=== PATIENT | female | born 1940 | race Caucasian/White ===

== ENCOUNTER 2016-11-07 05:28 | Emergency (ER) | payer OTHER ==
[~2016-11-07 05:28] MED LIST: ACETAMINOPHEN500 MG PO; ALLOPURINOL100 MG PO; ASPIRIN325 MG PO; ATORVASTATIN CA20 MG PO; BUPROPION HCL100 MG PO; CARVEDILOL25 MG PO; CITALOPRAM HYDR20 MG PO; COLCRYS0.6 MG; COUMADIN6 MG PO; COZAAR100 MG PO; FLUTICASONE PR50 MCG; LEVOTHYROXINE75 MCG PO; PERCOCET1 TA4 PO; PRILOSEC20 MG PO; SPIRIVA18 MCG INH; TRAMADOL HCL50 MG PO
--- NOTE | 2016-11-07 06:04 | ED ORDER SUMMARY ---
..... Patient: MALU BAUER OrderSheet [facility] VisitID: [id number] [address] [place] [address] 76y, F Registration Date/Time: 11/07/2016 ORDER SHEET Weight: 37.1 kg (stated) Allergies: LIsinopril, Penicillins, Sulfa Antibiotics GENERAL ORDERS: CBC w Diff Urgent (05:54 11/07/2016 [facility] ZARATE) (5:55 [facility] R[facility] Specialist) PT with INR Urgent (05:54 11/07/2016 [facility] ZARATE) (5:55 [facility]) MEDICATION ORDERS: IV FLUIDS: ORDER SHEET NOTES: [Electronically signed by Kevyn Gutierrez R.N. (06:15 11/07/2016)] [Electronically signed by Antione Almanzar DO (06:27 11/07/2016)] [Electronically locked/signed by Kevyn Gutierrez R.N. (06:15 11/07/2016)]
--- NOTE | 2016-11-07 06:04 | ED NURSING NOTES ---
Clinical Report - Nurses [facility] [address] [place] [address] 11/07/2016 5:28 Patient: MALU BAUER TRIAGE Triage time 05:36. Acuity: LEVEL 3. Chief Complaint: REDNESS TO RIGHT EYE. BLEEDING TO RIGHT EYE. 05:50. Alert. SEPSIS SCREEN: Sepsis Screen. Negative (no infection suspected/documented). VISUAL ACUITY: Visual acuity performed without corrective lenses: left eye 20/15; right eye 20/40 minus one letter; both eyes 20/20. --05:50 Kevyn Gutierrez R.N. 05:36 11/07/16. BP: 153/76. HR: 64. RR: 17. O2 saturation: 100% on room air. Temp: 97.7 F (oral). Pain level now: 0/10. --05:50 Kevyn Gutierrez R.N. Weight: 37.1 kg stated. Height/Length: 65 inches Per Patient. BMI: 13.6. --05:42 Kevyn Gutiererz R.N. Medications Cephalexin Oral 250 mg, daily. --05:44 Kevyn Gutierrez R.N. Levothyroxine Sodium Oral 75 mcg, daily. --05:44 Kevyn Gutierrez R.N. Fluticasone Furoate Nasal (Suspension 27.5 mcg/spray) 2 sprays each side , daily. --05:44 Kevyn Gutierrez R.N. Tamsulosin HCl Oral 0.4 mg, daily. --05:45 Kevyn Gutierrez R.N. Warfarin Sodium Oral 5 mg, daily. --05:46 Kevyn Gutierrez R.N. Furosemide Oral 20 mg, daily. --05:46 Kevyn Gutierrez R.N. Spironolactone Oral 25 mg, daily. --05:46 Kevyn Gutierrez R.N. BuPROPion HCl Oral 100 mg, 2x a day. --05:46 Kevyn Gutierrez R.N. Carvedilol Oral (Tablet 25 mg) 1 tablet, 2 x daily. --05:47 Kevyn Gutierrez R.N. Citalopram Hydrobromide Oral (Tablet 20 mg) 1 tablet, daily. --05:47 Kevyn Gutierrez R.N. Allergies LIsinopril. Penicillins. Sulfa Antibiotics. --05:40 Kevyn Gutierrez R.N. Medication/allergy information source: the patient. --05:50 Kevyn Gutierrez R.N. History Arrived by private vehicle. Historian: patient. Unaccompanied. Primary physician (Shital). Onset. (Woke up this AM with blood all over). She did not sustain an injury. ( Patient reports getting back from [place] yesterday, was very upset with her son and cried a lot last night, this morning about 0430 she woke up bloody with a blot clot in her right eye with blood on her pajamas and bedding). PAST MEDICAL HX: Immunizations: up-to-date. The patient has had a hysterectomy. SOCIAL HX: Never smoker. No alcohol use or drug use. No infectious disease exposure. ABUSE ASSESSMENT: No report of abuse. FALL RISK ASSESSMENT: Fall risk assessment completed. No fall risk identified. NUTRITIONAL RISK ASSESSMENT: The nutritional risk assessment revealed no deficiencies. FUNCTIONAL ASSESSMENT: Functional assessment: no impairments noted. LEARNING NEEDS ASSESSMENT: The learning needs assessment revealed no barriers. SKIN INTEGRITY ASSESSMENT: Skin integrity risk assessment completed. No skin integrity risk identified. --05:50 Kevyn Gutierrez R.N. PROBLEMS: Coronary Artery Disease. UTI. Dizziness. Heart Disease. Valvular Heart Disease. Pacemaker. Depression. Hypercholesterolemia. Hypertension. Atrial Fibrillation. --05:42 Kevyn Gutierrez R.N. Hypothyroidism. --05:50 Kevyn Gutierrez R.N. ADDITIONAL SURGERIES: Aortic valve replacement. Bladder Suspension. Bowel Surgery. Pacemaker. --05:42 Kevyn Gutierrez R.N. Back Surgery. Cholecystectomy. Eye surgery . Foot surgery x 4 . Hysterectomy. Shoulder Surgery. --05:50 Kevyn Gutierrez R.N. Interventions ID band on patient. To treatment room. --05:50 Kevyn Gutierrez R.N. PHYSICAL ASSESSMENT 05:51. Ambulatory to room. Patient gowned. GENERAL / NEURO / PSYCH: Alert. HEENT: No facial asymmetry noted. ( bleeding from right lower eye lid). RESPIRATORY: Respirations not labored. SKIN: Skin is warm and dry. Normal skin turgor. --05:51 Kevyn Gutierrez R.N. NURSING PROGRESS NOTES 05:45. Patient ID band checked for patient name and birthdate: patient confirmed. Blood samples drawn from the right antecubital space with Vacutainer by [employer] ; labeled in presence of the patient and sent to lab: bubba chaudhary. (by [facility] tech). --05:52 Kevyn Gutierrez R.N. 05:52. Head of bed elevated. Two patient identifiers checked. Call light placed in reach. Bed placed in lowest position. Brakes of bed on. Patient ready for evaluation- chart flagged. --05:52 Kevyn Gutierrez R.N. 06:12. The patient is calm and resting quietly. Overall patient status is improved- she states feels better. GENERAL / NEURO / PSYCH: Alert. Oriented X 4. RESPIRATORY: No respiratory distress. SKIN: Skin color within normal limits. --06:14 Kevyn Gutierrez R.N. DISPOSITION / DISCHARGE Departure time: 06:14. Condition at departure: stable. No learning barriers present. Discharge instructions provided and reviewed with the patient. Patient verbalized understanding. Written instructions provided in Thai. The patient was discharged home and unaccompanied at time of discharge. She left the Emergency Department ambulatory and via private vehicle. Patient driving. FALL RISK ASSESSMENT: Fall risk assessment completed. No fall risk identified. --06:14 Kevyn Gutierrez R.N. Locked/Released at 11/07/2016 6:15 by Kevyn Gutierrez R.N.
--- NOTE | 2016-11-07 06:04 | ED NURSING NOTES ---
Clinical Report - Nurses [facility] [address] [place] [address] 11/07/2016 5:28 Patient: MALU BAUER TRIAGE Triage time 05:36. Acuity: LEVEL 3. Chief Complaint: REDNESS TO RIGHT EYE. BLEEDING TO RIGHT EYE. 05:50. Alert. SEPSIS SCREEN: Sepsis Screen. Negative (no infection suspected/documented). VISUAL ACUITY: Visual acuity performed without corrective lenses: left eye 20/15; right eye 20/40 minus one letter; both eyes 20/20. --05:50 Kevyn Gutierrez R.N. 05:36 11/07/16. BP: 153/76. HR: 64. RR: 17. O2 saturation: 100% on room air. Temp: 97.7 F (oral). Pain level now: 0/10. --05:50 Kevyn Gutierrez R.N. Weight: 37.1 kg stated. Height/Length: 65 inches Per Patient. BMI: 13.6. --05:42 Kevyn Gutierrez R.N. Medications Cephalexin Oral 250 mg, daily. --05:44 Kevyn Gutierrez R.N. Levothyroxine Sodium Oral 75 mcg, daily. --05:44 Kevyn Gutierrez R.N. Fluticasone Furoate Nasal (Suspension 27.5 mcg/spray) 2 sprays each side , daily. --05:44 Kevyn Gutierrez R.N. Tamsulosin HCl Oral 0.4 mg, daily. --05:45 Kevyn Gutierrez R.N. Warfarin Sodium Oral 5 mg, daily. --05:46 Kevyn Gutierrez R.N. Furosemide Oral 20 mg, daily. --05:46 Kevyn Gutierrez R.N. Spironolactone Oral 25 mg, daily. --05:46 Kevyn Gutierrez R.N. BuPROPion HCl Oral 100 mg, 2x a day. --05:46 Kevyn Gutierrez R.N. Carvedilol Oral (Tablet 25 mg) 1 tablet, 2 x daily. --05:47 Kevyn Gutierrez R.N. Citalopram Hydrobromide Oral (Tablet 20 mg) 1 tablet, daily. --05:47 Kevyn Gutierrez R.N. Allergies LIsinopril. Penicillins. Sulfa Antibiotics. --05:40 Kevyn Gutierrez R.N. Medication/allergy information source: the patient. --05:50 Kevyn Gutierrez R.N. History Arrived by private vehicle. Historian: patient. Unaccompanied. Primary physician (Shital). Onset. (Woke up this AM with blood all over). She did not sustain an injury. ( Patient reports getting back from [place] yesterday, was very upset with her son and cried a lot last night, this morning about 0430 she woke up bloody with a blot clot in her right eye with blood on her pajamas and bedding). PAST MEDICAL HX: Immunizations: up-to-date. The patient has had a hysterectomy. SOCIAL HX: Never smoker. No alcohol use or drug use. No infectious disease exposure. ABUSE ASSESSMENT: No report of abuse. FALL RISK ASSESSMENT: Fall risk assessment completed. No fall risk identified. NUTRITIONAL RISK ASSESSMENT: The nutritional risk assessment revealed no deficiencies. FUNCTIONAL ASSESSMENT: Functional assessment: no impairments noted. LEARNING NEEDS ASSESSMENT: The learning needs assessment revealed no barriers. SKIN INTEGRITY ASSESSMENT: Skin integrity risk assessment completed. No skin integrity risk identified. --05:50 Kevyn Gutierrez R.N. PROBLEMS: Coronary Artery Disease. UTI. Dizziness. Heart Disease. Valvular Heart Disease. Pacemaker. Depression. Hypercholesterolemia. Hypertension. Atrial Fibrillation. --05:42 Kevyn Gutierrez R.N. Hypothyroidism. --05:50 Kevyn Gutierrez R.N. ADDITIONAL SURGERIES: Aortic valve replacement. Bladder Suspension. Bowel Surgery. Pacemaker. --05:42 Kevyn Gutierrez R.N. Back Surgery. Cholecystectomy. Eye surgery . Foot surgery x 4 . Hysterectomy. Shoulder Surgery. --05:50 Kevyn Gutierrez R.N. Interventions ID band on patient. To treatment room. --05:50 Kevyn Gutierrez R.N. PHYSICAL ASSESSMENT 05:51. Ambulatory to room. Patient gowned. GENERAL / NEURO / PSYCH: Alert. HEENT: No facial asymmetry noted. ( bleeding from right lower eye lid). RESPIRATORY: Respirations not labored. SKIN: Skin is warm and dry. Normal skin turgor. --05:51 Kevyn Gutierrez R.N. NURSING PROGRESS NOTES 05:45. Patient ID band checked for patient name and birthdate: patient confirmed. Blood samples drawn from the right antecubital space with Vacutainer by [employer] ; labeled in presence of the patient and sent to lab: bubba chaudhary. (by [employer] [facility] tech). --05:52 Kevyn Gutierrez R.N. 05:52. Head of bed elevated. Two patient identifiers checked. Call light placed in reach. Bed placed in lowest position. Brakes of bed on. Patient ready for evaluation- chart flagged. --05:52 Kevyn Gutierrez R.N. 06:12. The patient is calm and resting quietly. Overall patient status is improved- she states feels better. GENERAL / NEURO / PSYCH: Alert. Oriented X 4. RESPIRATORY: No respiratory distress. SKIN: Skin color within normal limits. --06:14 Kevyn Gutierrez R.N. DISPOSITION / DISCHARGE Departure time: 06:14. Condition at departure: stable. No learning barriers present. Discharge instructions provided and reviewed with the patient. Patient verbalized understanding. Written instructions provided in Turkmen. The patient was discharged home and unaccompanied at time of discharge. She left the Emergency Department ambulatory and via private vehicle. Patient driving. FALL RISK ASSESSMENT: Fall risk assessment completed. No fall risk identified. --06:14 Kevyn Gutierrez R.N. Locked/Released at 11/07/2016 6:15 by Kevyn Gutierrez R.N.
--- NOTE | 2016-11-07 06:04 | ED ORDER SUMMARY ---
..... Patient: MALU BAUER OrderSheet [facility] VisitID: [id number] [address] [place] [address] 76y, F Registration Date/Time: 11/07/2016 ORDER SHEET Weight: 37.1 kg (stated) Allergies: LIsinopril, Penicillins, Sulfa Antibiotics GENERAL ORDERS: CBC w Diff Urgent (05:54 [facility] (5:55 [facility] A P Manager) PT with INR Urgent (05:54 [facility]/07/2016 [facility] (5:55 [facility] A P Manager) MEDICATION ORDERS: IV FLUIDS: ORDER SHEET NOTES: [Electronically signed by Kevyn Gutierrez R.N. (06:15 11/07/2016)] [Electronically signed by Antione Almanzar DO (06:27 11/07/2016)] [Electronically locked/signed by Kevyn Gutierrez R.N. (06:15 11/07/2016)]
--- NOTE | 2016-11-07 06:04 | ED CLINICAL REPORT ---
Clinical Report - Physicians/Mid Levels [facility] [address] [place] [address] 11/07/2016 5:28 Patient: MALU BAUER Time Seen: 05:50. Arrived- By private vehicle. Historian- patient. HISTORY OF PRESENT ILLNESS Chief Complaint: EYE IRRITATION and blood from right eye. This started today, involves the right eye, is characterized as moderate in severity and has been constant and is still present. The patient did not sustain an injury. No eye pain. ( Patient reports getting back from [place] yesterday, was very upset with her son and cried a lot last night, this morning about 0430 she woke up bloody with a blot clot in her right eye with blood on her pajamas and bedding). REVIEW OF SYSTEMS No fever, sore throat or cough. All systems otherwise negative, except as recorded above. PAST HISTORY Glaucoma. PCP: Dr Isaacs PROBLEMS: Coronary Artery Disease. UTI. Dizziness. Heart Disease. Valvular Heart Disease. Pacemaker. Depression. Hypercholesterolemia. Hypertension. Atrial Fibrillation. Hypothyroidism. SURGERIES: Aortic valve replacement. Bladder Suspension. Bowel Surgery. Pacemaker. Back Surgery. Cholecystectomy. Eye surgery . Foot surgery x 4 . Hysterectomy. Shoulder Surgery. SOCIAL HISTORY Never smoker. No alcohol use or drug use. ADDITIONAL NOTES The nursing notes have been reviewed. PHYSICAL EXAM Vital Signs: 11/07/2016 05:36 BP: 153/76. HR: 64. RR: 17. O2 saturation: 100%. Temp: 97.7 F. Pain level now: 0/10. Appearance: Alert. Oriented X3. Anxious. No mild distress. Rt Eye: Moderate conjunctival edema (with left palpebral conjuctival inflammation and small amount of bleeding). No hyphema or injury to the periorbital area, eyebrow area, conjunctiva or sclera. No subconjunctival hemorrhage or conjunctival foreign body. No stye present. No foreign body under the eyelid. Conjunctiva not injected. Eyes: Corneas appear normal to inspection. Pupils equal, round and reactive to light. Accommodation normal. EOMs intact. Periorbital areas appear normal to inspection. Anterior chambers clear. Anterior chambers of normal depth. Lt Eye: Left eye exam normal. No hyphema. Neck: Normal inspection. CVS: Normal heart rate and rhythm. Heart sounds normal. Respiratory: No respiratory distress. Breath sounds normal. Skin: No rash. Extremities: Extremities negative. Neuro: Oriented X 3. Mood/affect normal. LABS, X-RAYS, AND EKG Laboratory Tests: CBC w Diff: (KIRK: 11/07/2016 05:44) ( [facility] 11/07/2016 05:58) Final results Test Result Flag Units (Reference) WHITE BLOOD COUNT 6.9 K/uL (4.5-11.5) RED BLOOD COUNT 4.81 M/uL (4.00-5.20) HEMOGLOBIN 12.0 gm/dL (12.0-16.0) HEMATOCRIT 38.1 % (36.0-46.0) MEAN CELL VOLUME 79 L fL (80-100) MEAN CORPUSCULAR HGB 25 L pg (26-34) MEAN CORPUSCULAR HGB CONC 31 g/dL (31-37) RED CELL DISTRIBUTION WIDTH 19.5 H % (11.6-14.8) PLATELET COUNT 235 K/uL (150-400) NEUTROPHIL % 51.6 % (50-75) LYMPH % 38.0 % (25-40) MONO % 8.1 % (3-14) EOSINOPHIL % 1.9 % (0-4) BASOPHIL % 0.4 % (0-2) PT with INR: (KIRK: 11/07/2016 05:44) ( [facility] 11/07/2016 06:04) Final results Test Result Flag Units (Reference) INR 2.4 H (0.8-1.2) Low Intensity Therapy: INR 1.5-2.0 PT range 18.5-23.1Mod.Intensity Therapy: INR 2.0-3.0 PT range 23.1-31.5High Intensity Therapy: INR 2.5-3.5 PT range 27.4-35.5High Intensity Therapy 2: INR 3.0-4.0 PT range 31.5-39.3 . Pulse Oximetry: 11/07/2016 05:36 O2 saturation: 100%. (FIO2 - room air). Interpretation: normal. PROGRESS AND PROCEDURES Course of Care: Pt with moderate right palpebral conjunctival inflammation with mild bleeding - no active bleeding now. No subconjunctival hemorrhage or hyphema now. No new visual changes. Patient/family counseled. Old ED records reviewed. Disposition: Discharged. Condition: stable and improved. CLINICAL IMPRESSION Acute hemorrhagic conjunctivitis of the right eye. Essential hypertension. Possible right subconjunctival hemorrhage (resolved). Chronic atrial fibrillation Heart valve replacement. INSTRUCTIONS Drink plenty of fluids. Warnings: Further evaluation is necessary in order to obtain test results. It is very important to follow up with a physician. GENERAL WARNINGS: Return or contact your physician immediately if your condition worsens or changes unexpectedly, if not improving as expected, or if other problems arise. Your Current Medications: CONTINUE TAKING THE FOLLOWING MEDICATIONS: BuPROPion HCl Oral : 100 mg 2x a day. Carvedilol Oral : Tablet 25 mg, 1 tablet 2 x daily. Cephalexin Oral : 250 mg daily. Citalopram Hydrobromide Oral : Tablet 20 mg, 1 tablet daily. Fluticasone Furoate Nasal : Suspension 27.5 mcg/spray, 2 sprays each side daily. Furosemide Oral : 20 mg daily. Levothyroxine Sodium Oral : 75 mcg daily. Spironolactone Oral : 25 mg daily. Tamsulosin HCl Oral : 0.4 mg daily. Warfarin Sodium Oral : 5 mg daily. Follow-up: Screening today revealed the patient's blood pressure to be in the hypertensive range. The patient should follow up with a primary care provider for blood pressure management. Follow-up with: Malini Alvarado MD, Ophthalmology, [facility], [address] [place] [address] - [address] [address]; George Arnold MD, Ophthalmology, , [facility], [address] [place] [address] Follow up today. Follow-up with: Jonathan Isaacs MD, Family [facility], , [facility], [address] [place] [address] Follow up tomorrow. (Electronically signed by Antione Almanzar DO 11/07/2016 6:27)
--- NOTE | 2016-11-07 06:04 | ED CLINICAL REPORT ---
Clinical Report - Physicians/Mid Levels [facility] [address] [place] [address] 11/07/2016 5:28 Patient: MALU BAUER Time Seen: 05:50. Arrived- By private vehicle. Historian- patient. HISTORY OF PRESENT ILLNESS Chief Complaint: EYE IRRITATION and blood from right eye. This started today, involves the right eye, is characterized as moderate in severity and has been constant and is still present. The patient did not sustain an injury. No eye pain. ( Patient reports getting back from [place] yesterday, was very upset with her son and cried a lot last night, this morning about 0430 she woke up bloody with a blot clot in her right eye with blood on her pajamas and bedding). REVIEW OF SYSTEMS No fever, sore throat or cough. All systems otherwise negative, except as recorded above. PAST HISTORY Glaucoma. PCP: Dr Isaacs PROBLEMS: Coronary Artery Disease. UTI. Dizziness. Heart Disease. Valvular Heart Disease. Pacemaker. Depression. Hypercholesterolemia. Hypertension. Atrial Fibrillation. Hypothyroidism. SURGERIES: Aortic valve replacement. Bladder Suspension. Bowel Surgery. Pacemaker. Back Surgery. Cholecystectomy. Eye surgery . Foot surgery x 4 . Hysterectomy. Shoulder Surgery. SOCIAL HISTORY Never smoker. No alcohol use or drug use. ADDITIONAL NOTES The nursing notes have been reviewed. PHYSICAL EXAM Vital Signs: 11/07/2016 05:36 BP: 153/76. HR: 64. RR: 17. O2 saturation: 100%. Temp: 97.7 F. Pain level now: 0/10. Appearance: Alert. Oriented X3. Anxious. No mild distress. Rt Eye: Moderate conjunctival edema (with left palpebral conjuctival inflammation and small amount of bleeding). No hyphema or injury to the periorbital area, eyebrow area, conjunctiva or sclera. No subconjunctival hemorrhage or conjunctival foreign body. No stye present. No foreign body under the eyelid. Conjunctiva not injected. Eyes: Corneas appear normal to inspection. Pupils equal, round and reactive to light. Accommodation normal. EOMs intact. Periorbital areas appear normal to inspection. Anterior chambers clear. Anterior chambers of normal depth. Lt Eye: Left eye exam normal. No hyphema. Neck: Normal inspection. CVS: Normal heart rate and rhythm. Heart sounds normal. Respiratory: No respiratory distress. Breath sounds normal. Skin: No rash. Extremities: Extremities negative. Neuro: Oriented X 3. Mood/affect normal. LABS, X-RAYS, AND EKG Laboratory Tests: CBC w Diff: (KIRK: 11/07/2016 05:44) ( [facility] 11/07/2016 05:58) Final results Test Result Flag Units (Reference) WHITE BLOOD COUNT 6.9 K/uL (4.5-11.5) RED BLOOD COUNT 4.81 M/uL (4.00-5.20) HEMOGLOBIN 12.0 gm/dL (12.0-16.0) HEMATOCRIT 38.1 % (36.0-46.0) MEAN CELL VOLUME 79 L fL (80-100) MEAN CORPUSCULAR HGB 25 L pg (26-34) MEAN CORPUSCULAR HGB CONC 31 g/dL (31-37) RED CELL DISTRIBUTION WIDTH 19.5 H % (11.6-14.8) PLATELET COUNT 235 K/uL (150-400) NEUTROPHIL % 51.6 % (50-75) LYMPH % 38.0 % (25-40) MONO % 8.1 % (3-14) EOSINOPHIL % 1.9 % (0-4) BASOPHIL % 0.4 % (0-2) PT with INR: (KIRK: 11/07/2016 05:44) ( [facility] 11/07[facility] 06:04) Final results Test Result Flag Units (Reference) INR 2.4 H (0.8-1.2) Low Intensity Therapy: INR 1.5-2.0 PT range 18.5-23.1Mod.Intensity Therapy: INR 2.0-3.0 PT range 23.1-31.5High Intensity Therapy: INR 2.5-3.5 PT range 27.4-35.5High Intensity Therapy 2: INR 3.0-4.0 PT range 31.5-39.3 . Pulse Oximetry: 11/07/2016 05:36 O2 saturation: 100%. (FIO2 - room air). Interpretation: normal. PROGRESS AND PROCEDURES Course of Care: Pt with moderate right palpebral conjunctival inflammation with mild bleeding - no active bleeding now. No subconjunctival hemorrhage or hyphema now. No new visual changes. Patient/family counseled. Old ED records reviewed. Disposition: Discharged. Condition: stable and improved. CLINICAL IMPRESSION Acute hemorrhagic conjunctivitis of the right eye. Essential hypertension. Possible right subconjunctival hemorrhage (resolved). Chronic atrial fibrillation Heart valve replacement. INSTRUCTIONS Drink plenty of fluids. Warnings: Further evaluation is necessary in order to obtain test results. It is very important to follow up with a physician. GENERAL WARNINGS: Return or contact your physician immediately if your condition worsens or changes unexpectedly, if not improving as expected, or if other problems arise. Your Current Medications: CONTINUE TAKING THE FOLLOWING MEDICATIONS: BuPROPion HCl Oral : 100 mg 2x a day. Carvedilol Oral : Tablet 25 mg, 1 tablet 2 x daily. Cephalexin Oral : 250 mg daily. Citalopram Hydrobromide Oral : Tablet 20 mg, 1 tablet daily. Fluticasone Furoate Nasal : Suspension 27.5 mcg/spray, 2 sprays each side daily. Furosemide Oral : 20 mg daily. Levothyroxine Sodium Oral : 75 mcg daily. Spironolactone Oral : 25 mg daily. Tamsulosin HCl Oral : 0.4 mg daily. Warfarin Sodium Oral : 5 mg daily. Follow-up: Screening today revealed the patient's blood pressure to be in the hypertensive range. The patient should follow up with a primary care provider for blood pressure management. Follow-up with: Malini Alvarado MD, Ophthalmology, [facility], [address] [place] [address] - [address] [address]; George Arnold MD, Ophthalmology, , [facility], [address] [place] [address] Follow up today. Follow-up with: Jonathan Isaacs MD, Family [facility], , [facility], [address] [place] [address] Follow up tomorrow. (Electronically signed by Antione Almanzar DO 11/07/2016 6:27)
--- NOTE | 2016-11-07 06:27 | ED MED RECONCILIATION SUMMARY ---
Patient: MALU BAUER Medication Reconciliation Report [facility] VisitID: [id number] [address] [place] [address] 76y, F Registration Date/Time: 11/07/2016 Weight: 37.1 kg Height/Length: 65 in. BMI: 13.6 ALLERGIES: LIsinopril, Penicillins, Sulfa Antibiotics The patient's Home Medications are listed below: CONTINUE TAKING THE FOLLOWING MEDICATIONS: BuPROPion HCl Oral 100 mg, 2x a day Carvedilol Oral (25 mg) 1 tablet, 2 x daily Cephalexin Oral 250 mg, daily Citalopram Hydrobromide Oral (20 mg) 1 tablet, daily Fluticasone Furoate Nasal (27.5 mcg/spray) 2 sprays each side , daily Furosemide Oral 20 mg, daily Levothyroxine Sodium Oral 75 mcg, daily Spironolactone Oral 25 mg, daily Tamsulosin HCl Oral 0.4 mg, daily Warfarin Sodium Oral 5 mg, daily The source(s) of the original Home Medication information: patient The following Medications were given to the patient in the Emergency Department: None. The following Medications were prescribed to the patient: None.
--- NOTE | 2016-11-07 06:27 | ED DISCHARGE INSTRUCTIONS ---
Patient: MALU BAUER General Instructions [facility] VisitID: [id number] [place] [address] 76y, F Registration Date/Time: 11/07/2016 Acute hemorrhagic conjunctivitis of the right eye. Essential hypertension. Chronic atrial fibrillation Heart valve replacement. INSTRUCTIONS Drink plenty of fluids. Warnings: Further evaluation is necessary in order to obtain test results. It is very important to follow up with a physician. GENERAL WARNINGS: Return or contact your physician immediately if your condition worsens or changes unexpectedly, if not improving as expected, or if other problems arise. Your Current Medications: CONTINUE TAKING THE FOLLOWING MEDICATIONS: BuPROPion HCl Oral : 100 mg 2x a day. Carvedilol Oral : Tablet 25 mg, 1 tablet 2 x daily. Cephalexin Oral : 250 mg daily. Citalopram Hydrobromide Oral : Tablet 20 mg, 1 tablet daily. Fluticasone Furoate Nasal : Suspension 27.5 mcg/spray, 2 sprays each side daily. Furosemide Oral : 20 mg daily. Levothyroxine Sodium Oral : 75 mcg daily. Spironolactone Oral : 25 mg daily. Tamsulosin HCl Oral : 0.4 mg daily. Warfarin Sodium Oral : 5 mg daily. Follow-up: Screening today revealed the patient's blood pressure to be in the hypertensive range. The patient should follow up with a primary care provider for blood pressure management. Follow-up with: Malini Alvarado MD, Ophthalmology, [facility], [address] [place] [address] [place] [address]; George Arnold MD, Ophthalmology, , [facility], [address] [place] [address] Follow up today. Follow-up with: Jonathan Isaacs MD, [facility], , [facility], [address] [place] [address] Follow up tomorrow. ADDITIONAL INFORMATION Conjunctivitis, Non-Specific The membrane that covers your eye is inflamed. Any itching, burning or irritation should go away within the next 24 hours. Conjunctivitis may be related to a particle that was in your eye. If so, it was washed out with your tears or irrigation treatment. Being exposed to liquid chemicals or fumes may also cause this reaction. Your condition does not appear to be due to an eye infection. Home Care: Apply a cold pack (ice in a plastic bag, wrapped in a towel) over the eye for 20 minutes at a time. This will reduce pain. Eye drops may be prescribed to reduce irritation or redness. Otherwise, Visine or similar pqnk-ttg-[id number] decongestant eye drops may be used. You may use acetaminophen (Tylenol) or ibuprofen (Motrin, Advil) to control pain, unless another medicine was prescribed. [ NOTE: If you have chronic liver or kidney disease or ever had a stomach ulcer or GI bleeding, talk with your doctor before using these medicines.] Follow Up with your doctor or this facility as directed, or if your symptoms have not improved after 24 hours. Get Prompt Medical Attention if any of the following occur: Increased eyelid swelling Increase in eye pain Increased redness or drainage from the eye Failure of normal vision to return within 24-48 hours. Subconjunctival Hemorrhage A subconjunctival hemorrhage is a result of a broken blood vessel in the white portion of the eye. It is usually painless and may be caused by coughing, sneezing or vomiting. An injury to the eye can cause this. It can also be a sign of hypertension (high blood pressure) or a bleeding disorder. Although it can look frightening, the presence of the blood is not serious. The blood will be reabsorbed without treatment within 2-3 weeks. Home Care: You may continue your usual activities. Get Prompt Medical Attention if any of the following occur: Pain in the eye Change in vision The blood does not disappear within three weeks Increasing redness or swelling of the eye Severe headache or dizziness Other signs of bruising or bleeding from other parts of your body High Blood Pressure --Established High Blood Pressure (Hypertension) is a chronic disease. The cause is unknown in most cases. It can usually be controlled with lifestyle changes and/or medicines. Symptoms of high blood pressure may include headache, dizziness, visual changes, chest pain and shortness of breath. Sometimes it causes no symptoms at all. However, even if there are no symptoms, untreated high blood pressure increases the risk of heart attack, also known as acute myocardial infarction, or AMI, and stroke. It is a serious health risk and should not be ignored. A normal blood pressure is 120/80 or less. The first (top) number is the "systolic" pressure. The second (bottom) number is the "diastolic" pressure. Hypertension exists when either the top number is 140 or higher, OR the bottom number is 90 or higher on repeated measurements. Home Care: All patients with high blood pressure should do the following to lower their pressure. If you are on medicines, then these methods may reduce or eliminate your need for medicines in the future. Begin a weight loss program if you are overweight. Reduce your salt intake. Avoid high salt foods (olives, pickles, smoked meats, salted potato chips, etc.). Do not add salt to your food at the table. Use only small amounts of salt when cooking. Begin an exercise program. Discuss with your doctor what type of exercise program would be best for you. It doesn't have to be difficult. Even brisk walking for 20 minutes three times a week is a good form of exercise. Avoid medicines which contain heart stimulants. This includes many cold and sinus decongestant pills and sprays as well as diet pills. Check the warnings about hypertension on the label. Stimulants such as amphetamine or cocaine could be lethal for someone with hypertension. Never take these. Limit your caffeine intake or switch to caffeine-free products. Stop smoking. If you are a long-time smoker, this can be hard. Enroll in a stop-smoking program to improve your chance of success. Learning how to handle stress better is an important part of any program to lower blood pressure. Learn about relaxation methods such as meditation, yoga or biofeedback. If medicines were prescribed, take them exactly as directed. Missing doses may cause your blood pressure get out of control. Consider buying an automatic blood pressure machine (available at most pharmacies). Use this to monitor your blood pressure at home and report the results to your doctor. Follow Up: Regular visits to your own physician for blood pressure checks and medicine adjustment is an important part of your care. Make a follow-up appointment as directed by our staff. Get Prompt Medical Attention if any of the following occur: Chest pain or shortness of breath Severe headache Throbbing or rushing sound in the ears Nosebleed Sudden severe abdominal pain Extreme drowsiness, confusion or fainting Dizziness or vertigo (dizziness with spinning sensation) Weakness of an arm or leg or one side of the face Difficulty with speech or vision You have been given the following additional information: Conjunctivitis, Non-Specific Subconjunctival Hemorrhage Hypertension, Established (Electronically signed by Antione Almanzar DO 11/07/2016 6:27)
--- NOTE | 2016-11-07 06:27 | ED MAR SUMMARY ---
..... Medication Administration Record [facility] [address] [place], [place] [id number] Patient: MALU BAUER Visit ID: [id number] 76y, F Weight: 37.1 kg Height/Length: 65 in BMI: 13.6 ALLERGIES: Penicillins, Sulfa Antibiotics, LIsinopril
--- NOTE | 2016-11-07 06:27 | ED MAR SUMMARY ---
..... Medication Administration Record [facility] [address] [place], [place] [id number] Patient: MALU BAUER Visit ID: [id number] 76y, F Weight: 37.1 kg Height/Length: 65 in BMI: 13.6 ALLERGIES: Penicillins, Sulfa Antibiotics, LIsinopril
--- NOTE | 2016-11-07 06:27 | ED DISCHARGE INSTRUCTIONS ---
Patient: MALU BAUER General Instructions [facility] VisitID: [id number] [place] [address] 76y, F Registration Date/Time: 11/07/2016 Acute hemorrhagic conjunctivitis of the right eye. Essential hypertension. Chronic atrial fibrillation Heart valve replacement. INSTRUCTIONS Drink plenty of fluids. Warnings: Further evaluation is necessary in order to obtain test results. It is very important to follow up with a physician. GENERAL WARNINGS: Return or contact your physician immediately if your condition worsens or changes unexpectedly, if not improving as expected, or if other problems arise. Your Current Medications: CONTINUE TAKING THE FOLLOWING MEDICATIONS: BuPROPion HCl Oral : 100 mg 2x a day. Carvedilol Oral : Tablet 25 mg, 1 tablet 2 x daily. Cephalexin Oral : 250 mg daily. Citalopram Hydrobromide Oral : Tablet 20 mg, 1 tablet daily. Fluticasone Furoate Nasal : Suspension 27.5 mcg/spray, 2 sprays each side daily. Furosemide Oral : 20 mg daily. Levothyroxine Sodium Oral : 75 mcg daily. Spironolactone Oral : 25 mg daily. Tamsulosin HCl Oral : 0.4 mg daily. Warfarin Sodium Oral : 5 mg daily. Follow-up: Screening today revealed the patient's blood pressure to be in the hypertensive range. The patient should follow up with a primary care provider for blood pressure management. Follow-up with: Malini Alvarado MD, Ophthalmology, [facility], [address] [place] [address] [place] [address]; George Arnold MD, Ophthalmology, , [facility], [address] [place] [address] Follow up today. Follow-up with: Jonathan Isaacs MD, Family [facility], , [facility], [address] [place] [address] Follow up tomorrow. ADDITIONAL INFORMATION Conjunctivitis, Non-Specific The membrane that covers your eye is inflamed. Any itching, burning or irritation should go away within the next 24 hours. Conjunctivitis may be related to a particle that was in your eye. If so, it was washed out with your tears or irrigation treatment. Being exposed to liquid chemicals or fumes may also cause this reaction. Your condition does not appear to be due to an eye infection. Home Care: Apply a cold pack (ice in a plastic bag, wrapped in a towel) over the eye for 20 minutes at a time. This will reduce pain. Eye drops may be prescribed to reduce irritation or redness. Otherwise, Visine or similar [id number] decongestant eye drops may be used. You may use acetaminophen (Tylenol) or ibuprofen (Motrin, Advil) to control pain, unless another medicine was prescribed. [ NOTE: If you have chronic liver or kidney disease or ever had a stomach ulcer or GI bleeding, talk with your doctor before using these medicines.] Follow Up with your doctor or this facility as directed, or if your symptoms have not improved after 24 hours. Get Prompt Medical Attention if any of the following occur: Increased eyelid swelling Increase in eye pain Increased redness or drainage from the eye Failure of normal vision to return within 24-48 hours. Subconjunctival Hemorrhage A subconjunctival hemorrhage is a result of a broken blood vessel in the white portion of the eye. It is usually painless and may be caused by coughing, sneezing or vomiting. An injury to the eye can cause this. It can also be a sign of hypertension (high blood pressure) or a bleeding disorder. Although it can look frightening, the presence of the blood is not serious. The blood will be reabsorbed without treatment within 2-3 weeks. Home Care: You may continue your usual activities. Get Prompt Medical Attention if any of the following occur: Pain in the eye Change in vision The blood does not disappear within three weeks Increasing redness or swelling of the eye Severe headache or dizziness Other signs of bruising or bleeding from other parts of your body High Blood Pressure --Established High Blood Pressure (Hypertension) is a chronic disease. The cause is unknown in most cases. It can usually be controlled with lifestyle changes and/or medicines. Symptoms of high blood pressure may include headache, dizziness, visual changes, chest pain and shortness of breath. Sometimes it causes no symptoms at all. However, even if there are no symptoms, untreated high blood pressure increases the risk of heart attack, also known as acute myocardial infarction, or AMI, and stroke. It is a serious health risk and should not be ignored. A normal blood pressure is 120/80 or less. The first (top) number is the "systolic" pressure. The second (bottom) number is the "diastolic" pressure. Hypertension exists when either the top number is 140 or higher, OR the bottom number is 90 or higher on repeated measurements. Home Care: All patients with high blood pressure should do the following to lower their pressure. If you are on medicines, then these methods may reduce or eliminate your need for medicines in the future. Begin a weight loss program if you are overweight. Reduce your salt intake. Avoid high salt foods (olives, pickles, smoked meats, salted potato chips, etc.). Do not add salt to your food at the table. Use only small amounts of salt when cooking. Begin an exercise program. Discuss with your doctor what type of exercise program would be best for you. It doesn't have to be difficult. Even brisk walking for 20 minutes three times a week is a good form of exercise. Avoid medicines which contain heart stimulants. This includes many cold and sinus decongestant pills and sprays as well as diet pills. Check the warnings about hypertension on the label. Stimulants such as amphetamine or cocaine could be lethal for someone with hypertension. Never take these. Limit your caffeine intake or switch to caffeine-free products. Stop smoking. If you are a long-time smoker, this can be hard. Enroll in a stop-smoking program to improve your chance of success. Learning how to handle stress better is an important part of any program to lower blood pressure. Learn about relaxation methods such as meditation, yoga or biofeedback. If medicines were prescribed, take them exactly as directed. Missing doses may cause your blood pressure get out of control. Consider buying an automatic blood pressure machine (available at most pharmacies). Use this to monitor your blood pressure at home and report the results to your doctor. Follow Up: Regular visits to your own physician for blood pressure checks and medicine adjustment is an important part of your care. Make a follow-up appointment as directed by our staff. Get Prompt Medical Attention if any of the following occur: Chest pain or shortness of breath Severe headache Throbbing or rushing sound in the ears Nosebleed Sudden severe abdominal pain Extreme drowsiness, confusion or fainting Dizziness or vertigo (dizziness with spinning sensation) Weakness of an arm or leg or one side of the face Difficulty with speech or vision You have been given the following additional information: Conjunctivitis, Non-Specific Subconjunctival Hemorrhage Hypertension, Established (Electronically signed by Antione Almanzar DO 11/07/2016 6:27)
--- NOTE | 2016-11-07 06:27 | ED MED RECONCILIATION SUMMARY ---
Patient: MALU BAUER Medication Reconciliation Report [facility] VisitID: [id number] [address] [place] [address] 76y, F Registration Date/Time: 11/07/2016 Weight: 37.1 kg Height/Length: 65 in. BMI: 13.6 ALLERGIES: LIsinopril, Penicillins, Sulfa Antibiotics The patient's Home Medications are listed below: CONTINUE TAKING THE FOLLOWING MEDICATIONS: BuPROPion HCl Oral 100 mg, 2x a day Carvedilol Oral (25 mg) 1 tablet, 2 x daily Cephalexin Oral 250 mg, daily Citalopram Hydrobromide Oral (20 mg) 1 tablet, daily Fluticasone Furoate Nasal (27.5 mcg/spray) 2 sprays each side , daily Furosemide Oral 20 mg, daily Levothyroxine Sodium Oral 75 mcg, daily Spironolactone Oral 25 mg, daily Tamsulosin HCl Oral 0.4 mg, daily Warfarin Sodium Oral 5 mg, daily The source(s) of the original Home Medication information: patient The following Medications were given to the patient in the Emergency Department: None. The following Medications were prescribed to the patient: None.
[2017-03-16] MEDS ORDERED: TAMSULOSIN HCL0.4 MG PO (16:48)
[2017-03-16] MEDS ORDERED: TIZANIDINE HCL2 MG (16:49)
[2017-03-16] MEDS ORDERED: TRAZODONE HCL50 MG PO (16:49)
[2017-03-16] MEDS ORDERED: ALDACTONE25 MG PO (16:50)
[2017-03-16] MEDS ORDERED: FUROSEMIDE40 MG PO (16:50)
== END 2016-11-07 06:14 | disposition home or self-care (01) ==
LOC: ED SRH 05:28
DX: H11.31 Conjunctival hemorrhage, right eye (principal); I48.2 Chronic atrial fibrillation; I10 Essential (primary) hypertension; Z95.2 Presence of prosthetic heart valve; Z79.01 Long term (current) use of anticoagulants
CPT/HCPCS: 90074; 94060; 95059

== ENCOUNTER 2016-11-25 22:35 | Emergency (ER) | payer OTHER ==
--- NOTE | 2016-11-26 01:31 | ED NURSING NOTES ---
Clinical Report - Nurses [facility] [address] [place] [address] 11/25/2016 22:36 Patient: MALU BAUER TRIAGE Triage time 22:34 Nov 25 2016. Acuity: LEVEL 3. Chief Complaint: CHEST PAIN. Alert. TOBY COMA SCORE: Toby Coma Scale: 15- eyes open spontaneously (4); best verbal response- oriented x 4 (5); best motor response- obeys commands (6). --22:43 Kevyn Glasgow R.N. 22:33 11/25/16. BP: 140/63. HR: 71. RR: 20. O2 saturation: 96%. Temp: 98.3 F. Pain level now: 0/10. --22:43 Kevyn Glasgow R.N. Weight: 85.4 kg. Height/Length: 65 inches. BMI: 31.4. --22:41 Kevyn Glasgow R.N. Medications BuPROPion HCl Oral 100 mg, 2x a day. Carvedilol Oral (Tablet 25 mg) 1 tablet, 2 x daily. Citalopram Hydrobromide Oral (Tablet 20 mg) 1 tablet, daily. Fluticasone Furoate Nasal (Suspension 27.5 mcg/spray) 2 sprays each side , daily. Furosemide Oral 20 mg, daily. Levothyroxine Sodium Oral 75 mcg, daily. Spironolactone Oral 25 mg, daily. Tamsulosin HCl Oral 0.4 mg, daily. Warfarin Sodium Oral 5 mg, daily (This Rx is being held for a few days while her INR comes down.). --22:39 Kevyn Glasgow R.N. Medication/allergy information source: the patient and patient's imported external medical record. --22:43 Kevyn Glasgow R.N. Allergies LIsinopril. Penicillins. Sulfa Antibiotics. --22:39 Kevyn Glasgow R.N. History Arrived by EMS, and (Medic 48). Historian: patient. Unaccompanied. Primary physician (Shital). ( Chest Pain to (L) of Sternum radiating down (L) arm. Pt is a resident at [facility]). This started today. Onset. (about 4 hours ago). The patient has had difficulty breathing and nausea. Treatment DEMURRAGE CLERK: (4 Baby Apirin given by EMS in field). PAST MEDICAL HX: The patient is post-menopausal. SOCIAL HX: Never smoker. No alcohol use or drug use. No infectious disease exposure. ABUSE ASSESSMENT: No report of abuse. FALL RISK ASSESSMENT: Fall risk assessment completed. No fall risk identified. NUTRITIONAL RISK ASSESSMENT: The nutritional risk assessment revealed no deficiencies. FUNCTIONAL ASSESSMENT: Functional assessment: no impairments noted. LEARNING NEEDS ASSESSMENT: The learning needs assessment revealed no barriers. SKIN INTEGRITY ASSESSMENT: Skin integrity risk assessment completed. No skin integrity risk identified. --22:43 Kevyn Glasgow R.N. PROBLEMS: Subconjunctival Hemorrhage. Glaucoma. Hypothyroidism. Coronary Artery Disease. Pelvic Pain. UTI. Dizziness. Weakness. Heart Disease. Syncope. Valvular Heart Disease. Pacemaker. Depression. Atrial Fibrillation. Hypertension. Hypercholesterolemia. --22:40 Kevyn Glasgow R.N. Conjunctivitis [RuleOut]. --22:40 Kevyn Glasgow R.N. ADDITIONAL SURGERIES: Aortic valve replacement. Back Surgery. Bladder Suspension. Bowel Surgery. Cholecystectomy. Eye surgery . Foot surgery x 4 . Hysterectomy. Pacemaker. Shoulder Surgery. --22:40 Kevyn Glasgow R.N. Interventions ID and allergy band on patient. To treatment room. --22:43 Kevyn Glasgow R.N. PHYSICAL ASSESSMENT To room via stretcher. GENERAL / NEURO / PSYCH: Alert. Oriented X 4. HEENT: Mucous membranes are pink. RESPIRATORY: Respirations not labored. CVS: Cardiac rhythm: atrial fibrillation; (with PPM). Abnormal heart sounds: systolic murmur. Pulses within normal limits. Capillary refill less than 2 seconds. GI / : Abdomen soft and nontender. EXTREMITIES: No lower extremity edema. SKIN: Skin is warm and dry. Normal skin turgor. Skin is non-tender. --22:46 Kevyn Glasgow R.N. NURSING PROGRESS NOTES clinical research monitor, pulse oximeter and NIBP monitor placed on patient; clinical research monitor- Lead II and V1; monitor alarms on. Patient gowned. Reassurance given. Patient identifiers checked. Call light placed in reach. Side rails up x 2. Bed placed in lowest position. Brakes of bed on. Patient ready for evaluation- chart flagged and ED physician notified. --22:46 Kevyn Glasgow R.N. EKG time: (2242 PM). EKG was ordered, performed by a tech and shown to the ED physician. --22:50 Jose Beth 23:01 11/25/2016 Site #1 started prior to arrival by EMS via IV in the left forearm with an 18g angiocath, with aseptic technique and good blood return. Saline lock flushed with 10 mL saline. --23:26 Brisa Lopez ( [facility] --23:30 Brisa Lopez 23:30 11/25/16. BP: 112/74. HR: 74. RR: 18. O2 saturation: 98% on nasal cannula at 2 liters/minute. Pain level now: 0/10. --23:30 Brisa Lopez ( Patient has no complaints at this time). --23:30 Brisa Lopez 00:54 11/26/16. BP: 120/89. HR: 97. O2 saturation: 98% on room air. Temp: 97.9 F. --00:55 Beth Garcia The patient is resting quietly. --00:57 Brisa Lopez 00:56 11/26/16. BP: 119/22. HR: 74. RR: 16. O2 saturation: 98%. Pain level now: 0/10. --00:57 Brisa Lopez 23:15 11/25/16. Care transferred and report received (Kevyn Daugherty). --01:47 Brisa Lopez. DISPOSITION / DISCHARGE 01:38 11/26/16. Condition at departure: stable. --01:38 Brisa Lopez 01:35 11/26/16. BP: 117/97. HR: 68. RR: 20. O2 saturation: 96% on room air. Temp: 98.6 F (oral). Pain level now: 0/10. --01:38 Brisa Lopez No learning barriers present. Discharge instructions provided and reviewed with the patient. Reviewed medication(s) side effects, precautions, dosing and course information. Prescription(s) given to the patient. Patient verbalized understanding. Written instructions provided in [place]an. ( Follow up with cardiology in three days. Return for worsening symptoms.). The patient was discharged by the physician. She was discharged home and accompanied by family. She left the Emergency Department ambulatory and via private vehicle. Family member driving. --01:44 Brisa Lopez 01:39 11/26/2016 Site #1 removed upon discharge. Catheter intact. Bandaid applied. --01:44 Brisa Lopez. Locked/Released at 11/26/2016 1:47 by Brisa Lopez,
--- NOTE | 2016-11-26 01:31 | ED ORDER SUMMARY ---
..... Patient: MALU BAUER OrderSheet [facility] VisitID: [id number] [place] [address] 76y, F Registration Date/Time: 11/25/2016 ORDER SHEET Weight: 85.4 kg Allergies: LIsinopril, Penicillins, Sulfa Antibiotics GENERAL ORDERS: Sound Engineer Audio Control (Continuous) (Chest Pain) (23:11/25/2016 Ernestina R.NMilly verbal order read back to Dorina AGUIRRE) (23:09 Ernestina R.N.) Oxygen (2 L/min) (NC) (23:11/25/2016 Ernestina Arriola verbal order read back to Dorina AGUIRRE) (23:09 Ernestina R.N.) Chest 1V Urgent (23:11/25/2016 Dorina AGUIRRE) (Ack 23:11 AMcQuoid ER Tech1) (23:28 MCampbell) Sound Engineer Audio Control (Continuous) (23:11/25/2016 Dorina AGUIRRE) (Ack 23:11 AMcQuoid ER Tech1) (23:24 HSoule) Cardiac Panel Stat (23:11/25/2016 Dorina AGUIRRE) (Ack 23:11 AMcQuoid ER Tech1) (23:29 TLewis R.N.) BNP Urgent (23:11/25/2016 Dorina AGUIRRE) (Ack 23:11 AMcQuoid ER Tech1) (23:29 TLewis R.N.) Oxygen (2 L/min) (NC) (23:11/25/2016 Dornia AGUIRRE) (Ack 23:11 AMcQuoid ER Tech1) (23:24 HSoule) Pulse oximeter (23:11/25/2016 Dorina AGUIRRE) (Ack 23:11 AMcQuoid ER Tech1) (23:24 HSoule) EKG - ER Stat (:11/25/2016 Dorina AGUIRRE) (Ack 23:11 AMcQuoid ER Tech1) (23:13 AMcQuoid ER Tech1) MEDICATION ORDERS: IV FLUIDS: IV Saline Lock (23:11/25/2016 Ernestina Arriola verbal order read back to Dorina AGUIRRE) (23:26 HSoule) IV Saline Lock (23:10 11/25/2016 Dorina AGUIRRE) (Cancelled: Duplicate Order23:26 HSoule) ORDER SHEET NOTES: [Electronically signed by Brisa Lopez (01:47 11/26/2016)] [Electronically signed by Timur Arguelles MD (20:37 11/28/2016)] [Electronically locked/signed by Brisa Lopez (01:47 11/26/2016)]
--- NOTE | 2016-11-26 01:31 | ED NURSING NOTES ---
Clinical Report - Nurses [address] [place] [address] 11/25/2016 22:36 Patient: MALU BAUER TRIAGE Triage time 22:34 Nov 25 2016. Acuity: LEVEL 3. Chief Complaint: CHEST PAIN. Alert. TOBY COMA SCORE: Toby Coma Scale: 15- eyes open spontaneously (4); best verbal response- oriented x 4 (5); best motor response- obeys commands (6). --22:43 Kevyn Glasgow R.N. 22:33 11/25/16. BP: 140/63. HR: 71. RR: 20. O2 saturation: 96%. Temp: 98.3 F. Pain level now: 0/10. --22:43 Kevyn Glasgow R.N. Weight: 85.4 kg. Height/Length: 65 inches. BMI: 31.4. --22:41 Kevyn Glasgow R.N. Medications BuPROPion HCl Oral 100 mg, 2x a day. Carvedilol Oral (Tablet 25 mg) 1 tablet, 2 x daily. Citalopram Hydrobromide Oral (Tablet 20 mg) 1 tablet, daily. Fluticasone Furoate Nasal (Suspension 27.5 mcg/spray) 2 sprays each side , daily. Furosemide Oral 20 mg, daily. Levothyroxine Sodium Oral 75 mcg, daily. Spironolactone Oral 25 mg, daily. Tamsulosin HCl Oral 0.4 mg, daily. Warfarin Sodium Oral 5 mg, daily (This Rx is being held for a few days while her INR comes down.). --22:39 Kevyn Glasgow R.N. Medication/allergy information source: the patient and patient's imported external medical record. --22:43 Kevyn Glasgow R.N. Allergies LIsinopril. Penicillins. Sulfa Antibiotics. --22:39 Kevyn Glasgow R.N. History Arrived by EMS, and (Medic 48). Historian: patient. Unaccompanied. Primary physician ([facility]). ( Chest Pain to (L) of Sternum radiating down (L) arm. Pt is a resident at [facility]). This started today. Onset. (about 4 hours ago). The patient has had difficulty breathing and nausea. 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 PAST MEDICAL HX: The patient is post-menopausal. SOCIAL HX: Never smoker. No alcohol use or drug use. No infectious disease exposure. ABUSE ASSESSMENT: No report of abuse. FALL RISK ASSESSMENT: Fall risk assessment completed. No fall risk identified. NUTRITIONAL RISK ASSESSMENT: The nutritional risk assessment revealed no deficiencies. FUNCTIONAL ASSESSMENT: Functional assessment: no impairments noted. LEARNING NEEDS ASSESSMENT: The learning needs assessment revealed no barriers. SKIN INTEGRITY ASSESSMENT: Skin integrity risk assessment completed. No skin integrity risk identified. --22:43 Kevyn Glasgow R.N. PROBLEMS: Subconjunctival Hemorrhage. Glaucoma. Hypothyroidism. Coronary Artery Disease. Pelvic Pain. UTI. Dizziness. Weakness. Heart Disease. Syncope. Valvular Heart Disease. Pacemaker. Depression. Atrial Fibrillation. Hypertension. Hypercholesterolemia. --22:40 Kevyn Glasgow R.N. Conjunctivitis [RuleOut]. --22:40 Kevyn Glasgow R.N. ADDITIONAL SURGERIES: Aortic valve replacement. Back Surgery. Bladder Suspension. Bowel Surgery. Cholecystectomy. Eye surgery . Foot surgery x 4 . Hysterectomy. Pacemaker. Shoulder Surgery. --22:40 Kevyn Glasgow R.N. Interventions ID and allergy band on patient. To treatment room. --22:43 Kevyn Glasgow R.N. PHYSICAL ASSESSMENT To room via stretcher. GENERAL / NEURO / PSYCH: Alert. Oriented X 4. HEENT: Mucous membranes are pink. RESPIRATORY: Respirations not labored. CVS: Cardiac rhythm: atrial fibrillation; (with PPM). Abnormal heart sounds: systolic murmur. Pulses within normal limits. Capillary refill less than 2 seconds. GI / : Abdomen soft and nontender. EXTREMITIES: No lower extremity edema. SKIN: Skin is warm and dry. Normal skin turgor. Skin is non-tender. --22:46 Kevyn Glasgow R.N. NURSING PROGRESS NOTES pvc monitor, pulse oximeter and NIBP monitor placed on patient; ekg monitor- Lead II and V1; monitor alarms on. Patient gowned. Reassurance given. Patient identifiers checked. Call light placed in reach. Side rails up x 2. Bed placed in lowest position. Brakes of bed on. Patient ready for evaluation- chart flagged and ED physician notified. --22:46 Kevyn Glasgow R.N. EKG time: (2242 PM). EKG was ordered, performed by a tech and shown to the ED physician. --22:50 Jose Beth 23:01 11/25/2016 Site #1 started prior to arrival by EMS via IV in the left forearm with an 18g angiocath, with aseptic technique and good blood return. Saline lock flushed with 10 mL saline. --23:26 Brisa Lopez ( [facility] --23:30 Brisa Lopez 23:30 11/25/16. BP: 112/74. HR: 74. RR: 18. O2 saturation: 98% on nasal cannula at 2 liters/minute. Pain level now: 0/10. --23:30 Brisa Lopez ( Patient has no complaints at this time). --23:30 Brisa Lopez 00:54 11/26/16. BP: 120/89. HR: 97. O2 saturation: 98% on room air. Temp: 97.9 F. --00:55 Beth Garcia The patient is resting quietly. --00:57 Brisa Lopez 00:56 11/26/16. BP: 119/22. HR: 74. RR: 16. O2 saturation: 98%. Pain level now: 0/10. --00:57 Brisa Lopez 23:15 11/25/16. Care transferred and report received (Kevyn Daugherty). --01:47 Brisa Lopez. DISPOSITION / DISCHARGE 01:38 11/26/16. Condition at departure: stable. --01:38 Brisa Lopez 01:35 11/26/16. BP: 117/97. HR: 68. RR: 20. O2 saturation: 96% on room air. Temp: 98.6 F (oral). Pain level now: 0/10. --01:38 Brisa Lopez No learning barriers present. Discharge instructions provided and reviewed with the patient. Reviewed medication(s) side effects, precautions, dosing and course information. Prescription(s) given to the patient. Patient verbalized understanding. Written instructions provided in Bahamian. ( Follow up with cardiology in three days. Return for worsening symptoms.). The patient was discharged by the physician. She was discharged home and accompanied by family. She left the Emergency Department ambulatory and via private vehicle. Family member driving. --01:44 Brisa Lopez 01:39 11/26/2016 Site #1 removed upon discharge. Catheter intact. Bandaid applied. --01:44 Brisa Lopez. Locked/Released at 11/26/2016 1:47 by Brisa Lopez,
--- NOTE | 2016-11-26 01:31 | ED CLINICAL REPORT ---
Clinical Report - Physicians/Mid Levels [facility] [address] [place] [address] 11/25/2016 22:36 Patient: MALU BAUER Time Seen: 22:43 Nov 25 2016. Arrived- By ambulance. Historian- patient and EMS personnel. CPT: ER phys charges level 4 plus (#[id number]). EKG interpretation (#[id number]). HISTORY OF PRESENT ILLNESS Chief Complaint: CHEST PAIN. This started today patient describes pain episodes that are sharp and left chest that radiated down the left arm. The spells last for 1-1-1/2 minutes. She's had 3 or 4 of these episodes tonight. Had a pro time done today and the INR was 3.4. Her Coumadin is going to be held for the next day or 2. and is now gone. Onset during light activity. At its maximum, severity described as moderate. When seen in the E.D., it was almost gone. Modifying factors. Not worsened by anything. Not relieved by anything. It is described as sharp and "pain" and it is described as located in the left chest area and left shoulder and arm. No nausea, vomiting, difficulty breathing or diaphoresis. Similar symptoms previously: None. Recent medical care: The patient was seen recently at another facility in the office (today). Evaluation/treatment- INR drawn. REVIEW OF SYSTEMS No fever, chills, cough, pedal edema or calf pain. No fainting episodes, sore throat, abdominal pain, black stools or difficulty with urination. No skin rash, enlarged lymph nodes, joint pain or bloody stools. All systems otherwise negative, except as recorded above. PAST HISTORY Subconjunctival Hemorrhage. Glaucoma. Hypothyroidism. Pelvic Pain. UTI. Dizziness. Weakness.Heart Disease. Syncope. Valvular Heart Disease. Pacemaker. Depression. Atrial Fibrillation. Hypertension. Hypercholesterolemia. --22:40 Kevyn Glasgow R.N. Conjunctivitis [RuleOut]. --22:40 Kevyn Glasgow R.N. ADDITIONAL SURGERIES: Aortic valve replacement. Back Surgery. Bladder Suspension. Bowel Surgery. Cholecystectomy. Eye surgery . Foot surgery x 4 . Hysterectomy. Pacemaker. Shoulder Surgery. Medications: BuPROPion HCl Oral 100 mg, 2x a day. Carvedilol Oral (Tablet 25 mg) 1 tablet, 2 x daily. Citalopram Hydrobromide Oral (Tablet 20 mg) 1 tablet, daily. Fluticasone Furoate Nasal (Suspension 27.5 mcg/spray) 2 sprays each side , daily. Furosemide Oral 20 mg, daily. Levothyroxine Sodium Oral 75 mcg, daily. Spironolactone Oral 25 mg, daily. Tamsulosin HCl Oral 0.4 mg, daily. Warfarin Sodium Oral 5 mg, daily (This Rx is being held for a few days while her INR comes down.). Allergies: LIsinopril. Penicillins. Sulfa Antibiotics. SOCIAL HISTORY Never smoker. No alcohol use or drug use. ADDITIONAL NOTES The nursing notes have been reviewed. PHYSICAL EXAM Vital Signs: 11/25/2016 22:33 BP: 140/63. HR: 71. RR: 20. O2 saturation: 96%. Temp: 98.3 F. Pain level now: 0/10. Appearance: Alert. No acute distress. Eyes: Pupils equal, round and reactive to light. Eyes normal inspection. ENT: Pharynx normal. Neck: Normal inspection. Neck supple. CVS: Normal heart rate and rhythm. Heart sounds normal. Pulses normal. Respiratory: No respiratory distress. Breath sounds normal. Chest nontender. Abdomen: Soft and nontender. Back: Normal external inspection. Skin: Skin warm. Normal skin color. No rash. Extremities: Extremities exhibit normal ROM. No lower extremity edema. Neuro: Oriented X 3. No motor deficit. No sensory deficit. Reflexes normal. LABS, X-RAYS, AND EKG EKG: Rate: 68. Atrial fibrillation. Paced rhythm (intermittent). RBBB. Left axis deviation. Non-specific ST segment / T wave abnormalities. EKG unchanged when compared with prior EKG. The study has been interpreted contemporaneously. The EKG appears to be a good tracing. Chest X-ray: No acute disease. (pacer). Views: PA. Technique: poor inspiration. The X-rays were independently viewed by me and interpreted contemporaneously by me. Prior films were not available for comparison. Laboratory Tests: CBC w Diff: (KIRK: 11/25/2016 23:15) ( MsgRcvd 11/25/2016 23:49) Final results Test Result Flag Units (Reference) WHITE BLOOD COUNT 6.8 K/uL (4.5-11.5) MANUAL DIFFERENTIAL TO FOLLOW. RED BLOOD COUNT 4.84 M/uL (4.00-5.20) HEMOGLOBIN 12.0 gm/dL (12.0-16.0) HEMATOCRIT 37.6 % (36.0-46.0) MEAN CELL VOLUME 78 L fL (80-100) MEAN CORPUSCULAR HGB 25 L pg (26-34) MEAN CORPUSCULAR HGB CONC 32 g/dL (31-37) RED CELL DISTRIBUTION WIDTH 17.7 H % (11.6-14.8) PLATELET COUNT 224 K/uL (150-400) POLY % 59 % (50-75) BAND % 4 % (0-8) LYMPH 33 % (25-40) MONO 3 % (3-14) EOSINOPHIL % 1 % (0-4) BASOPHIL % 0 % (0-2) METAMYELOCYTE % 0 % (0-1) MYELOCYTE 0 % (0-1) OTHER CELL TYPE 0 POIKILOCYTOSIS 1+ OVALOCYTES 1+ BNP: (KIRK: 11/25/2016 23:15) ( MsgRcvd 11/25/2016 23:44) Final results Test Result Flag Units (Reference) B-TYPE NATRIURETIC PEPTIDE 328 H pg/ml (5-100) CHEM 13 PANEL: (KIRK: 11/25/2016 23:15) ( MsgRcvd 11/25/2016 23:42) Final results Test Result Flag Units (Reference) GLUCOSE 93 mg/dL (70-110) BUN 31 H mg/dL (7-18) CREATININE 1.6 H mg/dL (0.6-1.3) Estimated GFR 33.40 mL/min Estimated GFR- 40.48 mL/min Note: Persistent reduction over 3 months in eGFR<60 mL/min/1.73 m2 defines CKD. Patients with eGFR values>=60 mL/min/1.73 m2 may also have CKD if evidence ofpersistent proteinuria. Additional information may be foundat www.kidney.org. SODIUM 142 mmol/L (136-145) POTASSIUM 4.0 mmol/L (3.5-5.1) CHLORIDE 104 mmol/L (98-107) CARBON DIOXIDE 28 mmol/L (21-32) CALCIUM 8.5 mg/dL (8.5-10.1) TOTAL PROTEIN 7.0 g/dL (6.4-8.2) ALBUMIN 3.6 g/dL (3.3-5.0) BILIRUBIN, TOTAL 0.5 mg/dL (0.0-1.0) ALKALINE PHOSPHATASE 97 U/L (46-116) AST (SGOT) 18 U/L (15-37) ALT (SGPT) 18 U/L (12-78) MAGNESIUM 1.7 L mg/dL (1.8-2.4) CPK 51 U/L (24-260) TROPONIN I <0.05 ng/mL (0.00-1.5) TROPONIN REFERENCE RANGE:<0.1 NEGATIVE0.1-1.5 INDETERMINANT>1.5 POSITIVE . PROGRESS AND PROCEDURES Course of Care: nO SYMPTOMS IN THE er> old records indicate that the patient had listed coronary artery disease in her past medical history. On reviewing this with the patient does not appear that she's had coronary artery disease. She's not been told she has coronary artery disease she is an she's never had any stents or bypass's. 01:29 11/26/16. DISCUSSED WITH DR. ORELLANA HER PCP. he is aware of the lab x-ray ekg and the symptoms and is comfortable sending her home with sublingual nitroglycerin. patient is agreeable to this. Patient/family counseled. Disposition: Discharged. Condition: stable and improved. CLINICAL IMPRESSION Atypical chest pain .12 lead EKG performed. INSTRUCTIONS No strenuous activity. Rest. Warnings: Further evaluation is necessary. GENERAL WARNINGS: Return or contact your physician immediately if your condition worsens or changes unexpectedly, if not improving as expected, or if other problems arise. Prescription Medications: Nitrostat 0.4 mg: dissolve 1 tablet under tongue every 5 minutes as needed for chest pain. Dispense one hundred (100). No refills. Substitution is permissible. Follow-up: Follow up with a project development manager in three days. Call for an appointment. Understanding of the discharge instructions verbalized by patient and family. (Electronically signed by Timur Arguelles MD 11/28/2016 20:37)
--- NOTE | 2016-11-26 01:31 | ED ORDER SUMMARY ---
..... Patient: MALU BAUER OrderSheet [facility] VisitID: [id number] [place] [address] 76y, F Registration Date/Time: 11/25/2016 ORDER SHEET Weight: 85.4 kg Allergies: LIsinopril, Penicillins, Sulfa Antibiotics GENERAL ORDERS: Binding Stitcher (Continuous) (Chest Pain) (23:11/25/2016 Ernestina R.NMilly verbal order read back to Dorina AGUIRRE) (23:09 Ernestina R.N.) Oxygen (2 L/min) (NC) (23:11/25/2016 Ernestina Arriola verbal order read back to Dorina AGUIRRE) (23:09 Ernestina R.N.) Chest 1V Urgent (23:11/25/2016 Dorina AGUIRRE) (Ack 23:11 AMcQuoid ER Tech1) (23:28 MCampbell) Binding Stitcher (Continuous) (23:11/25/2016 Dorina AGUIRRE) (Ack 23:11 AMcQuoid ER Tech1) (23:24 HSoule) Cardiac Panel Stat (23:11/25/2016 Dorina AGUIRRE) (Ack 23:11 AMcQuoid ER Tech1) (23:29 TLewis R.N.) BNP Urgent (23:11/25/2016 Dorina AGUIRRE) (Ack 23:11 AMcQuoid ER Tech1) (23:29 TLewis R.N.) Oxygen (2 L/min) (NC) (23:11/25/2016 Dorina AGUIRRE) (Ack 23:11 AMcQuoid ER Tech1) (23:24 HSoule) Pulse oximeter (23:11/25/2016 Dorina AGUIRRE) (Ack 23:11 AMcQuoid ER Tech1) (23:24 HSoule) EKG - ER Stat (:11/25/2016 Dorina AGUIRRE) (Ack 23:11 AMcQuoid ER Tech1) (23:13 AMcQuoid ER Tech1) MEDICATION ORDERS: IV FLUIDS: IV Saline Lock (23:11/25/2016 Ernestina Arriola verbal order read back to Dorina AGUIRRE) (23:26 HSoule) IV Saline Lock (23:10 11/25/2016 Dorina AGUIRRE) (Cancelled: Duplicate Order23:26 HSoule) ORDER SHEET NOTES: [Electronically signed by Brisa Lopez (01:47 11/26/2016)] [Electronically signed by Timur Arguelles MD (20:37 11/28/2016)] [Electronically locked/signed by Brisa Lopez (01:47 11/26/2016)]
--- NOTE | 2016-11-26 07:38 | DIAGNOSTIC IMAGING REPORT ---
PROCEDURE: XR CHEST 1 VIEW INDICATION: CHEST PAIN TECHNIQUE: Portable AP view (2330 hours). COMPARISON: Compared to chest x-ray on 06/12/2015. FINDINGS: Lungs are clear. Left subclavian pacemaker. Status post median sternotomy and aortic valve prosthesis. Heart and mediastinum are normal size. Thorax is normal. IMPRESSION: 1. Status post aortic valve prosthesis. 2. Left subclavian pacemaker. 3. Otherwise negative chest.
--- NOTE | 2016-11-28 20:38 | ED MAR SUMMARY ---
..... Medication Administration Record [facility] [address] [place], [place] [id number] Patient: MALU BAUER Visit ID: [id number] 76y, F Weight: 85.4 kg Height/Length: 65 in BMI: 31.4 ALLERGIES: LIsinopril, Penicillins, Sulfa Antibiotics
--- NOTE | 2016-11-28 20:38 | ED MED RECONCILIATION SUMMARY ---
Patient: MALU BAUER Medication Reconciliation Report [facility] VisitID: [id number] [place] [address] 76y, F Registration Date/Time: 11/25/2016 Weight: 85.4 kg Height/Length: 65 in. BMI: 31.4 ALLERGIES: LIsinopril, Penicillins, Sulfa Antibiotics The patient's Home Medications are listed below: THE FOLLOWING MEDICATIONS NEED TO BE RECONCILED: BuPROPion HCl Oral 100 mg, 2x a day Carvedilol Oral (25 mg) 1 tablet, 2 x daily Citalopram Hydrobromide Oral (20 mg) 1 tablet, daily Fluticasone Furoate Nasal (27.5 mcg/spray) 2 sprays each side , daily Furosemide Oral 20 mg, daily Levothyroxine Sodium Oral 75 mcg, daily Spironolactone Oral 25 mg, daily Tamsulosin HCl Oral 0.4 mg, daily Warfarin Sodium Oral 5 mg, daily, This Rx is being held for a few days while her INR comes down. The source(s) of the original Home Medication information: patient patient's imported external medical record The following Medications were given to the patient in the Emergency Department: None. The following Medications were prescribed to the patient: Nitrostat 0.4 mg: dissolve 1 tablet under tongue every 5 minutes as needed for chest pain. Dispense one hundred (100). No refills. Substitution is permissible. -- Timur Arguelles MD
--- NOTE | 2016-11-28 20:38 | ED MAR SUMMARY ---
..... Medication Administration Record [facility] [address] [place], [place] [id number] Patient: MALU BAUER Visit ID: [id number] 76y, F Weight: 85.4 kg Height/Length: 65 in BMI: 31.4 ALLERGIES: LIsinopril, Penicillins, Sulfa Antibiotics
--- NOTE | 2016-11-28 20:38 | ED MED RECONCILIATION SUMMARY ---
Patient: MALU BAUER Medication Reconciliation Report [facility] VisitID: [id number] [place] [address] 76y, F Registration Date/Time: 11/25/2016 Weight: 85.4 kg Height/Length: 65 in. BMI: 31.4 ALLERGIES: LIsinopril, Penicillins, Sulfa Antibiotics The patient's Home Medications are listed below: THE FOLLOWING MEDICATIONS NEED TO BE RECONCILED: BuPROPion HCl Oral 100 mg, 2x a day Carvedilol Oral (25 mg) 1 tablet, 2 x daily Citalopram Hydrobromide Oral (20 mg) 1 tablet, daily Fluticasone Furoate Nasal (27.5 mcg/spray) 2 sprays each side , daily Furosemide Oral 20 mg, daily Levothyroxine Sodium Oral 75 mcg, daily Spironolactone Oral 25 mg, daily Tamsulosin HCl Oral 0.4 mg, daily Warfarin Sodium Oral 5 mg, daily, This Rx is being held for a few days while her INR comes down. The source(s) of the original Home Medication information: patient patient's imported external medical record The following Medications were given to the patient in the Emergency Department: None. The following Medications were prescribed to the patient: Nitrostat 0.4 mg: dissolve 1 tablet under tongue every 5 minutes as needed for chest pain. Dispense one hundred (100). No refills. Substitution is permissible. -- Timur Arguelles MD
--- NOTE | 2016-11-28 20:38 | ED DISCHARGE INSTRUCTIONS ---
Patient: MALU BAUER General Instructions [facility] VisitID: [id number] [place] [address] 76y, F Registration Date/Time: 11/25/2016 Atypical chest pain .12 lead EKG performed. INSTRUCTIONS No strenuous activity. Rest. Warnings: Further evaluation is necessary. GENERAL WARNINGS: Return or contact your physician immediately if your condition worsens or changes unexpectedly, if not improving as expected, or if other problems arise. Prescription Medications: Nitrostat 0.4 mg: dissolve 1 tablet under tongue every 5 minutes as needed for chest pain. Dispense one hundred (100). No refills. Substitution is permissible. Follow-up: Follow up with a experience planning strategist in three days. Call for an appointment. Understanding of the discharge instructions verbalized by patient and family. ADDITIONAL INFORMATION Chest Pain, Uncertain Cause Chest pain can happen for a number of reasons. Sometimes the cause can not be determined. If yourcondition does not seem serious, and your pain does not appear to be coming from your heart, your doctor may recommend watching it closely. Sometimes the signs of a serious problem take more time to appear. Therefore, watch for the warning signs listed below. Home care After your visit, follow these recommendations: Rest today and avoid strenuous activity. Take any prescribed medicine as directed. Follow-up care Follow up with your doctor or this facility as instructed or if you do not start to feel better within 24 hours. Call 911 Get immediate medical attention if any of the following occur: A change in the type of pain: if it feels different, becomes more severe, lasts longer, or begins to spread into your shoulder, arm, neck, jaw or back Shortness of breath or increased pain with breathing Weakness, dizziness, or fainting Rapid heart beat Get prompt medical attention Call your doctor right away if any of the following occur: Cough with dark colored sputum (phlegm) or blood Fever of 100.4F(38C) or higher, or as directed by your health care provider Swelling, pain or redness in one leg You have been given the following additional information: Chest Pain, Uncertain Cause No strenuous activity. Rest. (Electronically signed by Timur Arguelles MD 11/28/2016 20:37)
--- NOTE | 2016-11-28 20:38 | ED DISCHARGE INSTRUCTIONS ---
Patient: MALU BAUER General Instructions Located [facility] VisitID: [id number] [place] [address] 76y, F Registration Date/Time: 11/25/2016 Atypical chest pain .12 lead EKG performed. INSTRUCTIONS No strenuous activity. Rest. Warnings: Further evaluation is necessary. GENERAL WARNINGS: Return or contact your physician immediately if your condition worsens or changes unexpectedly, if not improving as expected, or if other problems arise. Prescription Medications: Nitrostat 0.4 mg: dissolve 1 tablet under tongue every 5 minutes as needed for chest pain. Dispense one hundred (100). No refills. Substitution is permissible. Follow-up: Follow up with a cash specialist in three days. Call for an appointment. Understanding of the discharge instructions verbalized by patient and family. ADDITIONAL INFORMATION Chest Pain, Uncertain Cause Chest pain can happen for a number of reasons. Sometimes the cause can not be determined. If yourcondition does not seem serious, and your pain does not appear to be coming from your heart, your doctor may recommend watching it closely. Sometimes the signs of a serious problem take more time to appear. Therefore, watch for the warning signs listed below. Home care After your visit, follow these recommendations: Rest today and avoid strenuous activity. Take any prescribed medicine as directed. Follow-up care Follow up with your doctor or this facility as instructed or if you do not start to feel better within 24 hours. Call 911 Get immediate medical attention if any of the following occur: A change in the type of pain: if it feels different, becomes more severe, lasts longer, or begins to spread into your shoulder, arm, neck, jaw or back Shortness of breath or increased pain with breathing Weakness, dizziness, or fainting Rapid heart beat Get prompt medical attention Call your doctor right away if any of the following occur: Cough with dark colored sputum (phlegm) or blood Fever of 100.4F(38C) or higher, or as directed by your health care provider Swelling, pain or redness in one leg You have been given the following additional information: Chest Pain, Uncertain Cause No strenuous activity. Rest. (Electronically signed by Timur Arguelles MD 11/28/2016 20:37)
[2017-03-16] MEDS ORDERED: TAMSULOSIN HCL0.4 MG PO (16:48)
[2017-03-16] MEDS ORDERED: TIZANIDINE HCL2 MG (16:49)
[2017-03-16] MEDS ORDERED: TRAZODONE HCL50 MG PO (16:49)
[2017-03-16] MEDS ORDERED: FUROSEMIDE40 MG PO (16:50)
[2017-03-16] MEDS ORDERED: ALDACTONE25 MG PO (16:50)
== END 2016-11-26 01:45 | disposition home or self-care (01) ==
LOC: ED SRH 22:35
DX: R07.89 Other chest pain (principal); I48.91 Unspecified atrial fibrillation; I10 Essential (primary) hypertension; E03.9 Hypothyroidism, unspecified; Z88.0 Allergy status to penicillin; Z88.2 Allergy status to sulfonamides; Z88.8 Allergy status to other drugs, medicaments and biological substances
CPT/HCPCS: 90100; 90616; 91320; 91643; 92610; 92720; 95059

== ENCOUNTER 2017-03-17 07:48 | Day surgery (SDC) | payer OTHER ==
--- NOTE | 2017-03-16 19:17 | HISTORY AND PHYSICAL ---
ADMITTED: 03/17/2017 HISTORY OF PRESENT ILLNESS: The patient is a 77-year-old female who has had a longstanding painful right first MTP and subluxed second digit, right foot. Originally carried out a first attempt at an arthrodesis back on 06/12/2015. It subsequently developed into a nonunion. CT scan revealed that. She went through a revision, carried out also by myself on 04/01/2016, has been healing fine. However, she states it is still very painful and swollen. Recent x-rays still reveal like there is incomplete unionization. We did have her utilize a bone stimulator, which she states she quit using quite some time ago and it is just at the point where she just wants to have the hardware and toe removed. MEDICAL/SURGICAL HISTORY: Past medical history: Includes history of cataracts, heart murmur, heart problems, hypertension, elevated cholesterol, hypothyroidism. Adaptive Physical Education Teacher is Dr. Manzanares. There is additional history of gout, atrial fibrillation, depression, renal insufficiency. Surgical history: Tonsils, appendectomy, hysterectomy, back , shoulder replacement, pacemaker and the aforementioned right foot surgery x2. PRIMARY CARE PROVIDER: Dr. Isaacs. MEDICATIONS: 1. Tylenol Extra Strength 500 mg 1 by mouth daily. 2. Atorvastatin 20 mg tablet 1 by mouth daily. 3. Cozaar 100 mg tablet 1 by mouth daily. 4. Aspirin 325 mg tablet 1 by mouth daily. 5. Levoxyl 75 mcg tablet 1 by mouth daily. 6. Citalopram hydrobromide 20 mg tablet 1 by mouth t.i.d. 7. Voltaren gel 2 g to extremities twice a day. 8. Promethazine/codeine 10 mg per 5 mL oral solution 1 teaspoon by mouth q.4 hours as needed. 9. Tramadol HCL 1-2 tablets 4 times per day. 10. Omeprazole 20 mg tablet 1 by mouth b.i.d. 11. Allopurinol 100 mg tablet 1 by mouth as needed for gout flare-ups. ALLERGIES: REPORTS AN ALLERGY TO: 1. LISINOPRIL. 2. PENICILLIN. 3. SEPTRA. SOCIAL HISTORY: She is . Does not smoke or drink. FAMILY HISTORY: Noncontributory to chief complaint. REVIEW OF SYSTEMS: Ten-point review of systems reveals abnormal heart function, pacemaker and atrial fibrillation. PHYSICAL EXAMINATION: GENERAL: The patient is alert, oriented x3. HEENT: PERRLA. Normocephalic. HEART: Regular rate and rhythm. LUNGS: Clear to auscultation. No wheezing, rhonchi, or rales. ABDOMEN: Soft, tender, nondistended. No palpable masses. Normal tones. VASCULAR: Pedal pulses are palpable at 1/4. Skin texture and turgor within normal limits. Subpapillary venous plexus capillary refill within normal limits. EXTREMITIES: There is a linear incision overlying the first MTP that is well- healed. The second digit is subluxed in the transverse plane, overlapping the right great toe. LAB/IMAGING: Imaging reveals a first MTP plate in place with hardware in place. There does not appear to have any improved solid fusion at the proximal and distal ends of the graft. IMPRESSION: 1. Ongoing nonunion. 2. Subluxation. PLAN: At patient's request, she would like to have the hardware removed, as well as the great toe removed for movement at the metatarsophalangeal joint level. She is well aware of the convalescent period associated with possible transfer lesion, weightbearing and balance issues. She is well aware of these and has elected to proceed with surgery. Surgery is scheduled on outpatient basis at [facility] on 03/17/2017.
[~2017-03-17] VITALS: Ht 165.1 cm; Wt 87.7 kg
[~2017-03-17 07:48] MED LIST changes: +ALDACTONE25 MG PO; +FUROSEMIDE40 MG PO; +TAMSULOSIN HCL0.4 MG PO; +TIZANIDINE HCL2 MG; +TRAZODONE HCL50 MG PO
--- NOTE | 2017-03-17 11:38 | Provider's Discharge Care Plan ---
Problem, Goal, Plan Problem List 1. Nonunion of fracture Goals: Improve function Instructions: Follow up as directed
--- NOTE | 2017-03-17 11:38 | Provider's Discharge Care Plan ---
Problem, Goal, Plan Problem List 1. Nonunion of fracture Goals: Improve function Instructions: Follow up as directed
--- NOTE | 2017-03-17 13:12 | OPERATIVE REPORT ---
DATE OF SURGERY: 03/17/2017 SURGEON: Jeyson Pedersen DPM PREOPERATIVE DIAGNOSES: 1. Nonunion right first metatarsophalangeal 2. Painful hardware POSTOPERATIVE DIAGNOSES: 1. Nonunion right first metatarsophalangeal 2. Painful hardware PROCEDURE PERFORMED: 1. Removal of hardware 2. Amputation, right great toe ANESTHESIA: Spinal. Anesthesiologist Savita. HEMOSTASIS: Achieved by pneumatic ankle tourniquet inflated to 250 mmHg pressure. Total tourniquet time 48 minutes. MATERIALS: 4-0 Polysorb and 3-0 nylon. INJECTABLES: Injected 20 mL of 0.5% bupivacaine plain. COMPLICATIONS: None. CONDITION: The patient tolerated anesthesia and procedure well. INDICATIONS: The patient is a 77-year-old female who has undergone 2 unsuccessful attempts at first MTP arthrodesis with bone graft. States that it has gotten progressively painful where she would like to have the hardware, as well as the toe removed. She is well aware of the convalescent period, the balance issues associated with walking as well as no guarantee that the amputation will relieve her pain. She is fully aware of these and has elected to proceed with surgical intervention. She has been cleared by her injection molding process technician and primary care provider for the planned procedure. SURGICAL TECHNIQUE: The patient was brought to the operating room and placed on the table in the supine position. At this time, Dr. Barney then administered a spinal anesthetic. Upon verification, a pneumatic tourniquet was then placed above the right ankle. The right lower extremity was prepped and draped in the normal sterile fashion. An intraoperative pause was carried out for positive identification, proper limb, and consent form verified and confirmed. The right lower extremity was prepped and draped in normal sterile fashion. An Esmarch bandage was then utilized to exsanguinate the limb, the tourniquet was then inflated. Attention was then directed to procedure #1. PROCEDURE 1: REMOVAL OF HARDWARE, RIGHT FIRST MTP: At this time, a linear incision was made following the previous incision taken straight down to bone. The hardware consisting of a dorsal plate and 2 compression screws were removed in toto. Verified under fluoroscopy for complete removal. Attention was then directed to procedure #2. PROCEDURE 2: AMPUTATION OF THE RIGHT GREAT TOE: At this time, the toe was removed just at the proximal margin of the bone graft. An advancement flap was created from plantar to dorsal, creating a nice fat pad. The area was flushed. Skin edges were then remodeled. The bone was then refreshened proximately and a 1 cm chunk of bone was removed and angled obliquely from medial to laterally and tapered plantarly. The area was flushed. The bone was then closed with 3-0 Polysorb as well as subcutaneous tissue and advancement flap and held in place with 4-0 Polysorb. The skin edges were then reapproximated in a running fashion with 3-0 nylon. Local anesthetic was administered. A compressive dressing was applied. The tourniquet was released with reactive hyperemia and good digital perfusion. The patient tolerated anesthesia and procedure well and left the room with vital signs stable. While in recovery, instructions for weightbearing to tolerance with the aid of a postoperative boot. Prognosis is guarded. She will be discharged home in stable condition.
[2017-03-17 14:41] VITALS: BP 130/72
== END 2017-03-17 15:03 | disposition home or self-care (01) ==
LOC: OR SRH 07:48 → SCU SRH 07:49 → OR SRH 10:30
PROVIDERS: Podiatrist
PROC: 0QPN04Z Removal of Internal Fixation Device from Right Metatarsal, Open Approach (ICD-10-PCS; principal; 2017-03-17 10:30)
PROC: 0Y6P0Z0 Detachment at Right 1st Toe, Complete, Open Approach (ICD-10-PCS; principal; 2017-03-17 10:30)
DX: T84.293A Other mechanical complication of internal fixation device of bones of foot and toes, initial encounter (principal); M96.0 Pseudarthrosis after fusion or arthrodesis; T84.84XA Pain due to internal orthopedic prosthetic devices, implants and grafts, initial encounter; I10 Essential (primary) hypertension; Z79.82 Long term (current) use of aspirin; Z95.0 Presence of cardiac pacemaker
CPT/HCPCS: 29229; 29240; 50004; 60001; 80212; 83169; 83414; 83426; 84044; 84522; 90047; 90074; 94060; 95059

== ENCOUNTER 2017-05-07 02:13 | Emergency (ER) | payer OTHER ==
--- NOTE | 2017-05-07 03:09 | ED NURSING NOTES ---
Clinical Report - Nurses [facility] [address] [place] [address] 05/07/2017 2:14 Patient: MALU BAUER TRIAGE Triage time 02:19. Acuity: LEVEL 4. Chief Complaint: LEFT UPPER EXTREMITY PAIN. --02:24 Iris Parker R.N. 02:19 05/07/17. BP: 129/66. HR: 58. RR: 18. O2 saturation: 96% on room air. Temp: 98.5 F (oral). Pain level now: 04/08. --02:24 Iris Parker R.N. Weight: 82.5 kg stated. Height/Length: 65 inches Per Patient. BMI: 30.3. --02:19 Iris Parker R.N. Medications Carvedilol Oral (Tablet 25 mg) 1 tablet, 2 x daily. Citalopram Hydrobromide Oral (Tablet 20 mg) 1 tablet, daily. Fluticasone Furoate Nasal (Suspension 27.5 mcg/spray) 2 sprays each side , daily. Furosemide Oral 20 mg, daily. Levothyroxine Sodium Oral 75 mcg, daily. Spironolactone Oral 25 mg, daily. Tamsulosin HCl Oral 0.4 mg, daily. Warfarin Sodium Oral 5 mg, daily (This Rx is being held for a few days while her INR comes down.). --02:22 Iris Parker R.N. Allergies LIsinopril. Definite Severe (cough) Penicillins. Definite Severe(hives) Sulfa Antibiotics. Definite Severe(hives) --02:22 Iris Parker R.N. History Arrived by private vehicle. Historian: patient. Unaccompanied. Primary physician (royer). No injury occurred. This occurred last night. ( pt c/o right thumb and wrist states it is bone on bone says it started hurting last night and just has gotten worse). Treatment CAREER CENTER ADVISOR: Splint. PAST MEDICAL HX: Tetanus status: up-to-date. Immunizations: up-to-date. SOCIAL HX: Never smoker. No alcohol use or drug use. No infectious disease exposure. ABUSE ASSESSMENT: No report of abuse. SELF HARM ASSESSMENT: A self harm assessment was performed. The patient answered "no" to the question "Have you recently felt down, depressed, or hopeless?", "Have you noticed less interest or pleasure in doing things?", "Do you have thoughts of harming or killing yourself?", "Are you here because you tried to hurt yourself?", "Have you ever tried to hurt yourself before today?", "Have you recently had thoughts about harming or killing others?" and "Do you have any dangerous items in your possession?". FALL RISK ASSESSMENT: Fall risk assessment completed. No fall risk identified. NUTRITIONAL RISK ASSESSMENT: The nutritional risk assessment revealed no deficiencies. FUNCTIONAL ASSESSMENT: Functional assessment: no impairments noted. LEARNING NEEDS ASSESSMENT: The learning needs assessment revealed no barriers. SKIN INTEGRITY ASSESSMENT: Skin integrity risk assessment completed. No skin integrity risk identified. --02:24 Iris Parker R.N. PROBLEMS: Atypical Chest Pain. Subconjunctival Hemorrhage. Glaucoma. Hypothyroidism. Coronary Artery Disease. Pelvic Pain. UTI. Dizziness. Weakness. Heart Disease. LNMP - Last Normal Menstrual Period. Syncope. Valvular Heart Disease. Pacemaker. Immunizations. Depression. Atrial Fibrillation. Hypertension. Hypercholesterolemia. --02:24 Iris Parker R.N. Conjunctivitis [RuleOut]. --02:24 Iris Parker R.N. ADDITIONAL SURGERIES: Aortic valve replacement. Back Surgery. Bladder Suspension. Bowel Surgery. Cholecystectomy. Eye surgery . Foot surgery x 4 . Hysterectomy. Pacemaker. Right great toe amputation. Shoulder Surgery. --02:24 Iris Parker R.N. Interventions ID band on patient. To treatment room. --02:24 Iris Parker R.N. PHYSICAL ASSESSMENT <<STRICKEN ENTRY-- Ambulatory to room. GENERAL / NEURO / PSYCH: Oriented X 4. Alert. Appears in no acute distress. EXTREMITIES: Limited ROM present in the left wrist and left hand (secondary to pain). Neuro-vascular status intact to the extremity. No upper extremity edema. Left wrist: tenderness. Left hand: (thumb pain). SKIN: Skin intact. Skin is warm and dry. --02:25 Iris Parker R.N. --END STRIKE>> Correction --:27 Iris Parker R.N. Ambulatory to room. GENERAL / NEURO / PSYCH: Oriented X 4. Alert. Appears in no acute distress. EXTREMITIES: Limited ROM present in the left wrist and left hand. Neuro-vascular status intact to the extremity. Right wrist: tenderness. Limited ROM secondary to pain (diminished flexion). SKIN: Skin intact. Skin is warm and dry. --:27 Iris Parker R.N. NURSING PROGRESS NOTES Reassurance given. Two patient identifiers checked. Call light placed in reach. Side rails up x 1. Bed placed in lowest position. Brakes of bed on. Patient ready for evaluation- chart flagged. --02: Iris Parker R.N. 02:56 05/07/2017 Toradol (Ketorolac Tromethamine) IM 60 mg given. Given in the left gluteus kiana. Allergies verified and confirmed 5 rights. --:56 Iris Parker R.N. DISPOSITION / DISCHARGE Departure time: 0325. Condition at departure: improved and stable. No learning barriers present. Discharge instructions provided and reviewed with the patient. Reviewed medication(s) side effects, precautions, dosing and course information. Prescription(s) given to the patient. Reviewed referral to a primary care physician for followup. Patient verbalized understanding. Written instructions provided in Urdu. The patient was discharged home and unaccompanied at time of discharge. She left the Emergency Department ambulatory and via private vehicle. Patient driving. --03:37 Iris Parker R.N. 03:25 05/07/17. BP: deferred. HR: deferred. RR: deferred. O2 saturation: deferred. Temp: deferred. Pain level now deferred. --03:37 Iris Parker R.N. Locked/Released at 05/07/2017 3:37 by Iris Parker R.N.
--- NOTE | 2017-05-07 03:09 | ED ORDER SUMMARY ---
..... Patient: MALU BAUER OrderSheet [facility] VisitID: [id number] [place] [address] 77y, F Registration Date/Time: 05/07/2017 ORDER SHEET Weight: 82.5 kg (stated) Allergies: LIsinopril, Penicillins, Sulfa Antibiotics GENERAL ORDERS: Hand 3 or 4V Right Urgent (02:34 05/07/2017 Adelaida Britt) (Ack 2:54 [facility] Window Shade Estimator) (3:04 [facility] Window Shade Estimator) - (warm compress to right hand) (02:35 05/07/2017 Adelaida Britt) (2:41 Chong R.N.) MEDICATION ORDERS: Toradol IM 60 mg (NOW) (02:35 05/07/2017 Adelaida Britt) (Ack 2:49 Chong R.N.) (2:56 Chong R.N.) IV FLUIDS: ORDER SHEET NOTES: [Electronically signed by Iris Parker R.N. (03:37 05/07/2017)] [Electronically signed by Michael Torres Dr. (08:31 05/10/2017)] [Electronically locked/signed by Iris Parker R.N. (03:37 05/07/2017)]
--- NOTE | 2017-05-07 03:09 | ED CLINICAL REPORT ---
Clinical Report - Physicians/Mid Levels [facility] [address] [place] [address] 05/07/2017 2:14 Patient: MALU BAUER Time Seen: 0229; initial patient contact. Arrived- By private vehicle. Historian- patient. HISTORY OF PRESENT ILLNESS Chief Complaint: Injury to the right hand. The injury happened last night. Occurred at home. (not sure). Patient is experiencing severe pain. Patient denies injury to the head or neck. No other injury. 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 knits. has a thumbspika velcro brace for it). REVIEW OF SYSTEMS The patient has had swelling. No tingling, numbness, weakness, foreign body or skin laceration. All systems otherwise negative, except as recorded above. PAST HISTORY See nurses notes. The patient's dominant hand is the right. Tetanus immunization status is up-to-date. Medications: Carvedilol Oral (Tablet 25 mg) 1 tablet, 2 x daily. Citalopram Hydrobromide Oral (Tablet 20 mg) 1 tablet, daily. Fluticasone Furoate Nasal (Suspension 27.5 mcg/spray) 2 sprays each side , daily. Furosemide Oral 20 mg, daily. Levothyroxine Sodium Oral 75 mcg, daily. Spironolactone Oral 25 mg, daily. Tamsulosin HCl Oral 0.4 mg, daily. Warfarin Sodium Oral 5 mg, daily (This Rx is being held for a few days while her INR comes down.). Allergies: LIsinopril. Definite Severe (cough) Penicillins. Definite Severe(hives) Sulfa Antibiotics. Definite Severe(hives). SOCIAL HISTORY Never smoker. No alcohol use or drug use. Is a local resident. ADDITIONAL NOTES The nursing notes have been reviewed. PHYSICAL EXAM Vital Signs: 05/07/2017 02:19 BP: 129/66. HR: 58. RR: 18. O2 saturation: 96%. Temp: 98.5 F. Pain level now: 6/10. Blood pressure normal. Oxygen saturation normal. Appearance: Alert. Oriented X3. No acute distress. Head: Head atraumatic. Eyes: Pupils equal, round and reactive to light. Eyes normal inspection. ENT: Ears normal. Nose normal. Pharynx normal. Neck: Normal inspection. Neck supple. C-spine non-tender. CVS: Normal heart rate and rhythm. Heart sounds normal. Pulses normal. Respiratory: No respiratory distress. Breath sounds normal. Chest nontender. No rales, rhonchi or wheezes. Abdomen: No visible injury. Soft and nontender. Bowel sounds normal. No mass. Skin: Skin warm and dry. Skin intact. Extremities: (no snuffbox tenderness. No overlying skin changes. No crepitus. No bony abnormalities. No swelling. Compartments are soft. Neurovascularly intact. Patient has good strengthand full range of motion in all major joints of the hand.). Extremities otherwise negative. Neuro, Vascular and Tendons: Vascular status intact. Sensation intact. Motor intact. Tendon function intact. LABS, X-RAYS, AND EKG Rt Hand X-ray: (PROCEDURE: XR HAND 3 OR 4 VIEWS - RIGHT INDICATION: PAIN TECHNIQUE: Four views. COMPARISON: None. FINDINGS: There are marked degenerative changes of the right thumb (metacarpal/greater multangular joint, interphalangeal joint). There are mild to moderate degenerative changes of the distal interphalangeal joints of the fingers. There is no evidence of acute process or fracture. IMPRESSION: 1. 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 2. Mild to moderate degenerative changes of the distal fingers.). The X-rays were independently viewed by me and interpreted by the radiologist. The X-rays were discussed with the radiologist (via pacs). PROGRESS AND PROCEDURES Course of Care: Patient with acute exacerbation of right thumb pain. patient will be evaluted with radiographs. Pain medication offered. no acute findings on XR. No neurovascular compromise. Encouraged patient to continue with velcro brace. no signs of infection. patient stable outpatient candidate. Disposition: Discharged. Condition: good. CLINICAL IMPRESSION 05/07/2017 02:19 BP: 129/66. HR: 58. RR: 18. O2 saturation: 96%. Temp: 98.5 F. Pain level now: 6/10. Blood pressure normal. Oxygen saturation normal. Acute nontraumatic pain in the right upper extremity (hand)(acute). INSTRUCTIONS Warnings: CONTROLLED SUBSTANCE WARNINGS. GENERAL WARNINGS: Return or contact your physician immediately if your condition worsens or changes unexpectedly, if not improving as expected, or if other problems arise. Specifically return if pain, vomiting, bleeding, breathing difficulty or fever. Prescription Medications: Tramadol 50 mg: take 1 orally every 8 hours as needed for pain and stiffness. Do not take more than 8 tablets in a 24 hour period. Dispense twenty (20). No refills. Follow-up: Follow up with your doctor in three days. Reason for referral: recheck today's concerns. Summary of care provided to patient via paper. Screening today revealed the patient's blood pressure to be in the normal range. The patient should follow up with a primary care provider for blood pressure management. (Electronically signed by Michael Torres Dr. 05/10/2017 8:31)
--- NOTE | 2017-05-07 03:09 | ED ORDER SUMMARY ---
..... Patient: MALU BAUER OrderSheet [facility] VisitID: [id number] [place] [address] 77y, F Registration Date/Time: 05/07/2017 ORDER SHEET Weight: 82.5 kg (stated) Allergies: LIsinopril, Penicillins, Sulfa Antibiotics GENERAL ORDERS: Hand 3 or 4V Right Urgent (02:34 05/07/2017 Adelaida Britt) (Ack 2:54 [facility] ER Mail Handler) (3:04 [facility] [employer] ER Mail Handler) - (warm compress to right hand) (02:35 05/07/2017 Adelaida Britt) (2:41 Chong R.N.) MEDICATION ORDERS: Toradol IM 60 mg (NOW) (02:35 05/07/2017 Adelaida Britt) (Ack 2:49 Chong R.N.) (2:56 Chong R.N.) IV FLUIDS: ORDER SHEET NOTES: [Electronically signed by Iris Parker R.N. (03:37 05/07/2017)] [Electronically signed by Michael Torres Dr. (08:31 05/10/2017)] [Electronically locked/signed by Iris Parker R.N. (03:37 05/07/2017)]
--- NOTE | 2017-05-07 06:23 | DIAGNOSTIC IMAGING REPORT ---
PROCEDURE: XR HAND 3 OR 4 VIEWS - RIGHT INDICATION: PAIN TECHNIQUE: Four views. COMPARISON: None. FINDINGS: There are marked degenerative changes of the right thumb (metacarpal/greater multangular joint, interphalangeal joint). There are mild to moderate degenerative changes of the distal interphalangeal joints of the fingers. There is no evidence of acute process or fracture. IMPRESSION: 1. 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 2. Mild to moderate degenerative changes of the distal fingers.
--- NOTE | 2017-05-10 08:31 | ED DISCHARGE INSTRUCTIONS ---
Patient: MALU BAUER General Instructions [facility] VisitID: [id number] [place] [address] 77y, F Registration Date/Time: 05/07/2017 05/07/2017 02:19 BP: 129/66. HR: 58. RR: 18. O2 saturation: 96%. Temp: 98.5 F. Pain level now: 6/10. Blood pressure normal. Oxygen saturation normal. Acute nontraumatic pain in the right upper extremity (hand)(acute). INSTRUCTIONS Warnings: CONTROLLED SUBSTANCE WARNINGS. GENERAL WARNINGS: Return or contact your physician immediately if your condition worsens or changes unexpectedly, if not improving as expected, or if other problems arise. Specifically return if pain, vomiting, bleeding, breathing difficulty or fever. Prescription Medications: Tramadol 50 mg: take 1 orally every 8 hours as needed for pain and stiffness. Do not take more than 8 tablets in a 24 hour period. Dispense twenty (20). No refills. Follow-up: Follow up with your doctor in three days. Reason for referral: recheck today's concerns. Summary of care provided to patient via paper. Screening today revealed the patient's blood pressure to be in the normal range. The patient should follow up with a primary care provider for blood pressure management. ADDITIONAL INFORMATION Pain, Uncertain Cause [Acute] Pain is the bodys way of calling attention to a problem. Pain can be caused by many conditions - some minor, some serious. In your case, we were not able to find the exact cause for your pain. However, at this time there is no sign of any serious or life-threatening illness causing your pain. Sometimes more tests will be needed to determine the cause. Other times, just allowing more time to pass will either make it clear what the problem is, or the pain will go away by itself. Home Care: You may use acetaminophen (Tylenol) or ibuprofen (Motrin, Advil) to control pain, unless another medicine was prescribed. [NOTE: If you have chronic liver or kidney disease or ever had a stomach ulcer or GI bleeding, talk with your doctor before using these medicines.] Follow Up with your doctor or as advised by our staff. Get Prompt Medical Attention if any of the following occur: Changes in the pattern of your pain Appearance of new symptoms Fever of 100.4F (38C) or higher, or as directed by your healthcare provider Tramadol Hydrochloride Oral tablet What is this medicine? TRAMADOL (TRA ma dole) is a pain reliever. It is used to treat moderate to severe pain in adults. How should I use this medicine? Take this medicine by mouth with a full glass of water. Follow the directions on the prescription label. If the medicine upsets your stomach, take it with food or milk. Do not take more medicine than you are told to take. Talk to your regional intermodal truck driver regarding the use of this medicine in children. Special care may be needed. What side effects may I notice from receiving this medicine? Side effects that you should report to your doctor or health critical care specialist as soon as possible: allergic reactions like skin rash, itching or hives, swelling of the face, lips, or tongue breathing difficulties, wheezing confusion itching light headedness or fainting spells redness, blistering, peeling or loosening of the skin, including inside the mouth seizures Side effects that usually do not require medical attention (report to your doctor or health critical care specialist if they continue or are bothersome): constipation dizziness drowsiness headache nausea, vomiting What may interact with this medicine? Do not take this medicine with any of the following medications: MAOIs like Carbex, Eldepryl, Marplan, Nardil, and Parnate This medicine may also interact with the following medications: alcohol or medicines that contain alcohol antihistamines benzodiazepines bupropion carbamazepine or oxcarbazepine clozapine cyclobenzaprine digoxin furazolidone linezolid medicines for depression, anxiety, or psychotic disturbances medicines for migraine headache like almotriptan, eletriptan, frovatriptan, naratriptan, rizatriptan, sumatriptan, zolmitriptan medicines for pain like pentazocine, buprenorphine, butorphanol, meperidine, nalbuphine, and propoxyphene medicines for sleep muscle relaxants naltrexone phenobarbital phenothiazines like perphenazine, thioridazine, chlorpromazine, mesoridazine, fluphenazine, prochlorperazine, promazine, and trifluoperazine procarbazine warfarin What if I miss a dose? If you miss a dose, take it as soon as you can. If it is almost time for your next dose, take only that dose. Do not take double or extra doses. Where should I keep my medicine? Keep out of the reach of children. Store at room temperature between 15 and 30 degrees C (59 and 86 degrees F). Keep container tightly closed. Throw away any unused medicine after the expiration date. What should I tell my health care provider before I take this medicine? They need to know if you have any of these conditions: brain tumor depression drug abuse or addiction head injury if you frequently drink alcohol containing drinks kidney disease or trouble passing urine liver disease lung disease, asthma, or breathing problems seizures or epilepsy suicidal thoughts, plans, or attempt; a previous suicide attempt by you or a family member an unusual or allergic reaction to tramadol, codeine, other medicines, foods, dyes, or preservatives or trying to get breast-feeding What should I watch for while using this medicine? Tell your doctor or health critical care specialist if your pain does not go away, if it gets worse, or if you have new or a different type of pain. You may develop tolerance to the medicine. Tolerance means that you will need a higher dose of the medicine for pain relief. Tolerance is normal and is expected if you take this medicine for a long time. Do not suddenly stop taking your medicine because you may develop a severe reaction. Your body becomes used to the medicine. This does NOT mean you are addicted. Addiction is a behavior related to getting and using a drug for a non-medical reason. If you have pain, you have a medical reason to take pain medicine. Your doctor will tell you how much medicine to take. If your doctor wants you to stop the medicine, the dose will be slowly lowered over time to avoid any side effects. You may get drowsy or dizzy. Do not drive, use machinery, or do anything that needs mental alertness until you know how this medicine affects you. Do not stand or sit up quickly, especially if you are an older patient. This reduces the risk of dizzy or fainting spells. Alcohol can increase or decrease the effects of this medicine. Avoid alcoholic drinks. You may have constipation. Try to have a bowel movement at least every 2 to 3 days. If you do not have a bowel movement for 3 days, call your doctor or health critical care specialist. Your mouth may get dry. Chewing sugarless gum or sucking hard candy, and drinking plenty of water may help. Contact your doctor if the problem does not go away or is severe. You have been given the following additional information: Pain, Uncertain Cause (Acute) Tramadol Hydrochloride Oral tablet (Electronically signed by Michael Torres Dr. 05/10/2017 8:31)
--- NOTE | 2017-05-10 08:31 | ED DISCHARGE INSTRUCTIONS ---
Patient: MALU BAUER General Instructions [facility] VisitID: [id number] [place] [address] 77y, F Registration Date/Time: 05/07/2017 05/07/2017 02:19 BP: 129/66. HR: 58. RR: 18. O2 saturation: 96%. Temp: 98.5 F. Pain level now: 6/10. Blood pressure normal. Oxygen saturation normal. Acute nontraumatic pain in the right upper extremity (hand)(acute). INSTRUCTIONS Warnings: CONTROLLED SUBSTANCE WARNINGS. GENERAL WARNINGS: Return or contact your physician immediately if your condition worsens or changes unexpectedly, if not improving as expected, or if other problems arise. Specifically return if pain, vomiting, bleeding, breathing difficulty or fever. Prescription Medications: Tramadol 50 mg: take 1 orally every 8 hours as needed for pain and stiffness. Do not take more than 8 tablets in a 24 hour period. Dispense twenty (20). No refills. Follow-up: Follow up with your doctor in three days. Reason for referral: recheck today's concerns. Summary of care provided to patient via paper. Screening today revealed the patient's blood pressure to be in the normal range. The patient should follow up with a primary care provider for blood pressure management. ADDITIONAL INFORMATION Pain, Uncertain Cause [Acute] Pain is the bodys way of calling attention to a problem. Pain can be caused by many conditions - some minor, some serious. In your case, we were not able to find the exact cause for your pain. However, at this time there is no sign of any serious or life-threatening illness causing your pain. Sometimes more tests will be needed to determine the cause. Other times, just allowing more time to pass will either make it clear what the problem is, or the pain will go away by itself. Home Care: You may use acetaminophen (Tylenol) or ibuprofen (Motrin, Advil) to control pain, unless another medicine was prescribed. [NOTE: If you have chronic liver or kidney disease or ever had a stomach ulcer or GI bleeding, talk with your doctor before using these medicines.] Follow Up with your doctor or as advised by our staff. Get Prompt Medical Attention if any of the following occur: Changes in the pattern of your pain Appearance of new symptoms Fever of 100.4F (38C) or higher, or as directed by your healthcare provider Tramadol Hydrochloride Oral tablet What is this medicine? TRAMADOL (TRA ma dole) is a pain reliever. It is used to treat moderate to severe pain in adults. How should I use this medicine? Take this medicine by mouth with a full glass of water. Follow the directions on the prescription label. If the medicine upsets your stomach, take it with food or milk. Do not take more medicine than you are told to take. Talk to your microwave remote sensing scientist regarding the use of this medicine in children. Special care may be needed. What side effects may I notice from receiving this medicine? Side effects that you should report to your doctor or health manager critical care unit as soon as possible: allergic reactions like skin rash, itching or hives, swelling of the face, lips, or tongue breathing difficulties, wheezing confusion itching light headedness or fainting spells redness, blistering, peeling or loosening of the skin, including inside the mouth seizures Side effects that usually do not require medical attention (report to your doctor or health manager critical care unit if they continue or are bothersome): constipation dizziness drowsiness headache nausea, vomiting What may interact with this medicine? Do not take this medicine with any of the following medications: MAOIs like Carbex, Eldepryl, Marplan, Nardil, and Parnate This medicine may also interact with the following medications: alcohol or medicines that contain alcohol antihistamines benzodiazepines bupropion carbamazepine or oxcarbazepine clozapine cyclobenzaprine digoxin furazolidone linezolid medicines for depression, anxiety, or psychotic disturbances medicines for migraine headache like almotriptan, eletriptan, frovatriptan, naratriptan, rizatriptan, sumatriptan, zolmitriptan medicines for pain like pentazocine, buprenorphine, butorphanol, meperidine, nalbuphine, and propoxyphene medicines for sleep muscle relaxants naltrexone phenobarbital phenothiazines like perphenazine, thioridazine, chlorpromazine, mesoridazine, fluphenazine, prochlorperazine, promazine, and trifluoperazine procarbazine warfarin What if I miss a dose? If you miss a dose, take it as soon as you can. If it is almost time for your next dose, take only that dose. Do not take double or extra doses. Where should I keep my medicine? Keep out of the reach of children. Store at room temperature between 15 and 30 degrees C (59 and 86 degrees F). Keep container tightly closed. Throw away any unused medicine after the expiration date. What should I tell my health care provider before I take this medicine? They need to know if you have any of these conditions: brain tumor depression drug abuse or addiction head injury if you frequently drink alcohol containing drinks kidney disease or trouble passing urine liver disease lung disease, asthma, or breathing problems seizures or epilepsy suicidal thoughts, plans, or attempt; a previous suicide attempt by you or a family member an unusual or allergic reaction to tramadol, codeine, other medicines, foods, dyes, or preservatives or trying to get breast-feeding What should I watch for while using this medicine? Tell your doctor or health manager critical care unit if your pain does not go away, if it gets worse, or if you have new or a different type of pain. You may develop tolerance to the medicine. Tolerance means that you will need a higher dose of the medicine for pain relief. Tolerance is normal and is expected if you take this medicine for a long time. Do not suddenly stop taking your medicine because you may develop a severe reaction. Your body becomes used to the medicine. This does NOT mean you are addicted. Addiction is a behavior related to getting and using a drug for a non-medical reason. If you have pain, you have a medical reason to take pain medicine. Your doctor will tell you how much medicine to take. If your doctor wants you to stop the medicine, the dose will be slowly lowered over time to avoid any side effects. You may get drowsy or dizzy. Do not drive, use machinery, or do anything that needs mental alertness until you know how this medicine affects you. Do not stand or sit up quickly, especially if you are an older patient. This reduces the risk of dizzy or fainting spells. Alcohol can increase or decrease the effects of this medicine. Avoid alcoholic drinks. You may have constipation. Try to have a bowel movement at least every 2 to 3 days. If you do not have a bowel movement for 3 days, call your doctor or health manager critical care unit. Your mouth may get dry. Chewing sugarless gum or sucking hard candy, and drinking plenty of water may help. Contact your doctor if the problem does not go away or is severe. You have been given the following additional information: Pain, Uncertain Cause (Acute) Tramadol Hydrochloride Oral tablet (Electronically signed by Michael Torres Dr. 05/10/2017 8:31)
--- NOTE | 2017-05-10 08:31 | ED MED RECONCILIATION SUMMARY ---
Patient: MALU BAUER Medication Reconciliation Report [facility] VisitID: [id number] [place] [address] 77y, F Registration Date/Time: 05/07/2017 Weight: 82.5 kg Height/Length: 65 in. BMI: 30.3 ALLERGIES: LIsinopril, Penicillins, Sulfa Antibiotics The patient's Home Medications are listed below: THE FOLLOWING MEDICATIONS NEED TO BE RECONCILED: Carvedilol Oral (25 mg) 1 tablet, 2 x daily Citalopram Hydrobromide Oral (20 mg) 1 tablet, daily Fluticasone Furoate Nasal (27.5 mcg/spray) 2 sprays each side , daily Furosemide Oral 20 mg, daily Levothyroxine Sodium Oral 75 mcg, daily Spironolactone Oral 25 mg, daily Tamsulosin HCl Oral 0.4 mg, daily Warfarin Sodium Oral 5 mg, daily, This Rx is being held for a few days while her INR comes down. The source(s) of the original Home Medication information: Not obtained. The following Medications were given to the patient in the Emergency Department: Toradol [IM] IM 60 mg, administered: 05/07/2017 2:56:00 AM The following Medications were prescribed to the patient: Tramadol 50 mg: take 1 orally every 8 hours as needed for pain and stiffness. Do not take more than 8 tablets in a 24 hour period. Dispense twenty (20). No refills. -- Michael Torres Dr.
--- NOTE | 2017-05-10 08:31 | ED MED RECONCILIATION SUMMARY ---
Patient: MALU BAUER Medication Reconciliation Report [facility] VisitID: [id number] [place] [address] 77y, F Registration Date/Time: 05/07/2017 Weight: 82.5 kg Height/Length: 65 in. BMI: 30.3 ALLERGIES: LIsinopril, Penicillins, Sulfa Antibiotics The patient's Home Medications are listed below: THE FOLLOWING MEDICATIONS NEED TO BE RECONCILED: Carvedilol Oral (25 mg) 1 tablet, 2 x daily Citalopram Hydrobromide Oral (20 mg) 1 tablet, daily Fluticasone Furoate Nasal (27.5 mcg/spray) 2 sprays each side , daily Furosemide Oral 20 mg, daily Levothyroxine Sodium Oral 75 mcg, daily Spironolactone Oral 25 mg, daily Tamsulosin HCl Oral 0.4 mg, daily Warfarin Sodium Oral 5 mg, daily, This Rx is being held for a few days while her INR comes down. The source(s) of the original Home Medication information: Not obtained. The following Medications were given to the patient in the Emergency Department: Toradol [IM] IM 60 mg, administered: 05/07/2017 2:56:00 AM The following Medications were prescribed to the patient: Tramadol 50 mg: take 1 orally every 8 hours as needed for pain and stiffness. Do not take more than 8 tablets in a 24 hour period. Dispense twenty (20). No refills. -- Michael Torres Dr.
--- NOTE | 2017-05-10 08:31 | ED MAR SUMMARY ---
..... Medication Administration Record [facility] [address] [place] [address] Patient: MALU BAUER Visit ID: [id number] 77y, F Weight: 82.5 kg Height/Length: 65 in BMI: 30.3 ALLERGIES: LIsinopril, Penicillins, Sulfa Antibiotics Given 02:56 05/07/2017 Iris Parker R.N. Medication Administered: TORADOL [IM] (KETOROLAC TROMETHAMINE), Dose: 60 mg IM. Medication Ordered: Toradol IM 60 mg (NOW).
--- NOTE | 2017-05-10 08:31 | ED MAR SUMMARY ---
..... Medication Administration Record [facility] [address] [place] [address] Patient: MALU BAUER Visit ID: [id number] 77y, F Weight: 82.5 kg Height/Length: 65 in BMI: 30.3 ALLERGIES: LIsinopril, Penicillins, Sulfa Antibiotics Given 02:56 05/07/2017 Iris Parker R.N. Medication Administered: TORADOL [IM] (KETOROLAC TROMETHAMINE), Dose: 60 mg IM. Medication Ordered: Toradol IM 60 mg (NOW).
== END 2017-05-07 03:25 | disposition home or self-care (01) ==
LOC: ED SRH 02:13
DX: M79.641 Pain in right hand (principal); Z79.899 Other long term (current) drug therapy; Z79.01 Long term (current) use of anticoagulants; Z88.0 Allergy status to penicillin; Z88.2 Allergy status to sulfonamides; Z88.8 Allergy status to other drugs, medicaments and biological substances